=== PATIENT | female | born 1985 | race Caucasian/White ===

== ENCOUNTER 2017-01-31 19:38 | Inpatient (IN) ==
[2017-01-31 20:10] LABS: Bilirubin,Urine Small (Negative); Blood,Urine Negative (Negative); Clarity,Urine Cloudy (Clear); Color,Urine Red (Yellow); Glucose,Urine (UA) Normal (Normal); Ketones,Urine 15 mg/dL (Negative); Leukocyte Esterase,Urine Small (Negative); Nitrite,Urine Positive (Negative); PH,Urine 8.5 pH Units (5.0-8.0); Protein,Urine 100 mg/dL (Neg-Trace); Specific Gravity,Urine 1.023 (1.010-1.025); Urobilinogen,Urine Normal (Normal)
[2017-01-31] MEDS ORDERED: 0.9 % Sodium Chloride 1,000 ML IVC ONE ×2 (20:11→21:49)
[2017-01-31] MEDS ORDERED: Ondansetron 4 MG/2 ML VIAL IVP ONE (20:11)
[2017-01-31 20:12] LABS: Bacteria,Urine None Seen per hpf (None-Few); Hyaline Casts,Urine None Seen per lpf (None-Few); RBC,Urine 0-3 per hpf (0-3); Squamous Epithelial Cell,Urine Many per lpf (None-Few); WBC,Urine 0-3 per hpf (0-3)
[2017-01-31 20:22] LABS: Mucus,Urine Few (Few); Yeast,Urine Moderate per hpf (None Seen)
--- NOTE | 2017-01-31 20:33 | Emergency Department Note ---
Disposition Clinical Impression: Pancreatitis, Urinary tract infection Disposition: Admitted As Inpatient Condition: Fair General Adult HPI - General Chief complaint: ED Abdominal Pain Stated complaint: abd pain Time Seen by Provider: 01/31/17 19:46 Source: patient Limitations: no limitations Nursing Notes Reviewed: Yes Vital Signs Reviewed: Yes - History of Present Illness Pain Scale: 7 - Related Data Home Medications Medication Instructions Recorded Confirmed Amoxicillin [Amoxil] 500 mg PO TID 01/31/17 01/31/17 Buprenorphine HCl/Naloxone HCl 1 each SL BID 01/31/17 01/31/17 [Buprenorphin-Naloxon 8-2 mg Sl] MetroNIDAZOLE [Metronidazole] 500 mg PO TID 01/31/17 01/31/17 Ondansetron HCl 4 mg PO Q6H PRN 01/31/17 01/31/17 Allergies Allergy/AdvReac Type Severity Reaction Status Date / Time No Known Allergies Allergy Verified 01/31/17 22:12 Past Medical History - Past Medical History Medical history: Reports: no medical history, hepatitis, seizures Psychiatric history: Reports: anxiety, depression 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 - Social History Smoking Status: Current every day smoker Smokeless Tobacco Status: No Alcohol use: Reports: occasionally Drug use: Reports: none Physical Exam - General Limitations: no limitations General appearance: alert, in no apparent distress Course Vital Signs Temperature 98.1 F 01/31/17 19:40 Pulse Rate 90 01/31/17 19:40 Respiratory Rate 18 01/31/17 19:40 Blood Pressure 137/83 01/31/17 19:40 O2 Sat by Pulse Oximetry 100 01/31/17 19:40 Temperature 98.1 F 01/31/17 19:40 Pulse Rate 68 01/31/17 22:11 Respiratory Rate 16 01/31/17 22:11 Blood Pressure 122/80 01/31/17 22:11 O2 Sat by Pulse Oximetry 99 01/31/17 22:11 Oxygen Delivery Oxygen Delivery Room Air Medical Decision Making - Medical Records Medical records reviewed: Yes I reviewed the patient's medical records. - Lab Data Lab results reviewed: Yes I reviewed the patient's lab results. Result diagrams: 01/31/17 20:46 01/31/17 20:46 Lab Results 01/31/17 01/31/17 01/31/17 Range/Units 20:02 20:02 20:14 WBC (4.3-11.1) K/mcL RBC (3.82-4.97) M/mcL Hgb (11.5-15.4) g/dL Hct (35.3-44.9) % MCV (83.0-100.0) fL MCH (28.0-33.3) pg MCHC (31.6-35.5) g/dL RDW (11.5-14.5) % Plt Count (140-400) K/mcL MPV (9.4-12.4) fL Immature Gran % (0-4) % Seg Neutrophils % % Lymphocytes % % Monocytes % % Eosinophils % % Basophils % % Neutrophils # (1.6-8.9) K/mcL Lymphocytes # (0.6-4.6) K/mcL Monocytes # (0.0-1.3) K/mcL Eosinophils # (0.0-0.6) K/mcL Basophils # (0.0-0.2) K/mcL Immature Plt Fraction (1.1-6.1) % Sodium (136-145) mEq/L Potassium (3.5-4.5) mEq/L Chloride (98-109) mEq/L Carbon Dioxide (19-29) mEq/L BUN (7-20) mg/dL Creatinine (0.57-1.11) mg/dL Est GFR ( Amer) (> 60) Est GFR (Non-Af Amer) (> 60) BUN/Creatinine Ratio (6-26) Glucose (70-99) mg/dL Calculated Osmolality (280-300) Calcium (8.6-10.8) mg/dL Total Bilirubin (0.2-1.2) mg/dL Direct Bilirubin (0.0-0.5) mg/dL Indirect Bilirubin (0.0-1.2) mg/dL AST (5-34) Units/L ALT (0-55) Units/L Alkaline Phosphatase (38-126) Units/L Creatine Kinase (29-168) Units/L Troponin I (0-0.03) ng/mL Serum Total Protein (6.0-8.3) g/dL Albumin (3.5-5.0) g/dL Globulin (2.4-3.5) g/dL Albumin/Globulin Ratio (1.1-2.2) Lipase (8-78) Units/L Urine Color Red A (Yellow) Urine Clarity Cloudy A (Clear) Urine pH 8.5 H (5.0-8.0) pH Units Ur Specific [place] 1.023 (1.010-1.025) Urine Protein 100 H (Neg-Trace) mg/dL Urine Glucose (UA) Normal (Normal) mg/dL Urine Ketones 15 H (Negative) mg/dL Urine Blood Negative (Negative) Urine Nitrite Positive A (Negative) Urine Bilirubin Small H (Negative) Urine Urobilinogen Normal (Normal) mg/dL Ur Leukocyte Esterase Small H (Negative) Urine Microscopic RBC 0-3 (0-3) per hpf Urine Microscopic WBC 0-3 (0-3) per hpf Ur Squamous Epith Cells Many H (None-Few) per lpf Urine Bacteria None Seen (None-Few) per hpf Hyaline Casts None Seen (None-Few) per lpf Urine Mucus Few (Few) Urine Yeast Moderate H (None Seen) per hpf Ur Culture Indicated? YES A (NO) Urine Test Negative (Negative) Urine Cocaine Screen Negative (Cutoff= 300) ng/mL U Marijuana (THC) Screen Positive H (Cutoff = 50) ng/mL 01/31/17 01/31/17 01/31/17 Range/Units 20:46 20:46 20:46 WBC 6.3 (4.3-11.1) K/mcL RBC 3.98 (3.82-4.97) M/mcL Hgb 13.0 (11.5-15.4) g/dL Hct 39.0 (35.3-44.9) % MCV 98.0 (83.0-100.0) fL MCH 32.7 (28.0-33.3) pg MCHC 33.3 (31.6-35.5) g/dL RDW 14.0 (11.5-14.5) % Plt Count 265 (140-400) K/mcL MPV 9.3 L (9.4-12.4) fL Immature Gran % 0.3 (0-4) % Seg Neutrophils % 67.3 % Lymphocytes % 17.8 % Monocytes % 9.5 % Eosinophils % 4.6 % Basophils % 0.5 % Neutrophils # 4.3 (1.6-8.9) K/mcL Lymphocytes # 1.1 (0.6-4.6) K/mcL Monocytes # 0.6 (0.0-1.3) K/mcL Eosinophils # 0.3 (0.0-0.6) K/mcL Basophils # 0.0 (0.0-0.2) K/mcL Immature Plt Fraction 4.6 (1.1-6.1) % Sodium 138 (136-145) mEq/L Potassium 3.4 L (3.5-4.5) mEq/L Chloride 102 (98-109) mEq/L Carbon Dioxide 25 (19-29) mEq/L BUN 7 (7-20) mg/dL Creatinine 0.62 (0.57-1.11) mg/dL Est GFR ( Amer) > 60 (> 60) Est GFR (Non-Af Amer) > 60 (> 60) BUN/Creatinine Ratio 11 (6-26) Glucose 90 (70-99) mg/dL Calculated Osmolality 284 (280-300) Calcium 8.7 (8.6-10.8) mg/dL Total Bilirubin 0.9 (0.2-1.2) mg/dL Direct Bilirubin 0.5 (0.0-0.5) mg/dL Indirect Bilirubin 0.4 (0.0-1.2) mg/dL AST 65 H (5-34) Units/L ALT 36 (0-55) Units/L Alkaline Phosphatase 80 (38-126) Units/L Creatine Kinase (29-168) Units/L Troponin I 0.00 (0-0.03) ng/mL Serum Total Protein 6.5 (6.0-8.3) g/dL Albumin 3.5 (3.5-5.0) g/dL Globulin 3.0 (2.4-3.5) g/dL Albumin/Globulin Ratio 1.2 (1.1-2.2) Lipase 1483 H (8-78) Units/L Urine Color (Yellow) Urine Clarity (Clear) Urine pH (5.0-8.0) pH Units Ur Specific [place] (1.010-1.025) Urine Protein (Neg-Trace) mg/dL Urine Glucose (UA) (Normal) mg/dL Urine Ketones (Negative) mg/dL Urine Blood (Negative) Urine Nitrite (Negative) Urine Bilirubin (Negative) Urine Urobilinogen (Normal) mg/dL Ur Leukocyte Esterase (Negative) Urine Microscopic RBC (0-3) per hpf Urine Microscopic WBC (0-3) per hpf Ur Squamous Epith Cells (None-Few) per lpf Urine Bacteria (None-Few) per hpf Hyaline Casts (None-Few) per lpf Urine Mucus (Few) Urine Yeast (None Seen) per hpf Ur Culture Indicated? (NO) Urine Test (Negative) Urine Cocaine Screen (Cutoff= 300) ng/mL U Marijuana (THC) Screen (Cutoff = 50) ng/mL 01/31/17 Range/Units 20:46 WBC (4.3-11.1) K/mcL RBC (3.82-4.97) M/mcL Hgb (11.5-15.4) g/dL Hct (35.3-44.9) % MCV (83.0-100.0) fL MCH (28.0-33.3) pg MCHC (31.6-35.5) g/dL RDW (11.5-14.5) % Plt Count (140-400) K/mcL MPV (9.4-12.4) fL Immature Gran % (0-4) % Seg Neutrophils % % Lymphocytes % % Monocytes % % Eosinophils % % Basophils % % Neutrophils # (1.6-8.9) K/mcL Lymphocytes # (0.6-4.6) K/mcL Monocytes # (0.0-1.3) K/mcL Eosinophils # (0.0-0.6) K/mcL Basophils # (0.0-0.2) K/mcL Immature Plt Fraction (1.1-6.1) % Sodium (136-145) mEq/L Potassium (3.5-4.5) mEq/L Chloride (98-109) mEq/L Carbon Dioxide (19-29) mEq/L BUN (7-20) mg/dL Creatinine (0.57-1.11) mg/dL Est GFR ( Amer) (> 60) Est GFR (Non-Af Amer) (> 60) BUN/Creatinine Ratio (6-26) Glucose (70-99) mg/dL Calculated Osmolality (280-300) Calcium (8.6-10.8) mg/dL Total Bilirubin (0.2-1.2) mg/dL Direct Bilirubin (0.0-0.5) mg/dL Indirect Bilirubin (0.0-1.2) mg/dL AST (5-34) Units/L ALT (0-55) Units/L Alkaline Phosphatase (38-126) Units/L Creatine Kinase 103 (29-168) Units/L Troponin I (0-0.03) ng/mL Serum Total Protein (6.0-8.3) g/dL Albumin (3.5-5.0) g/dL Globulin (2.4-3.5) g/dL Albumin/Globulin Ratio (1.1-2.2) Lipase (8-78) Units/L Urine Color (Yellow) Urine Clarity (Clear) Urine pH (5.0-8.0) pH Units Ur Specific [place] (1.010-1.025) Urine Protein (Neg-Trace) mg/dL Urine Glucose (UA) (Normal) mg/dL Urine Ketones (Negative) mg/dL Urine Blood (Negative) Urine Nitrite (Negative) Urine Bilirubin (Negative) Urine Urobilinogen (Normal) mg/dL Ur Leukocyte Esterase (Negative) Urine Microscopic RBC (0-3) per hpf Urine Microscopic WBC (0-3) per hpf Ur Squamous Epith Cells (None-Few) per lpf Urine Bacteria (None-Few) per hpf Hyaline Casts (None-Few) per lpf Urine Mucus (Few) Urine Yeast (None Seen) per hpf Ur Culture Indicated? (NO) Urine Test (Negative) Urine Cocaine Screen (Cutoff= 300) ng/mL U Marijuana (THC) Screen (Cutoff = 50) ng/mL Attestation Statement - Attestation Attestation: I personally interviewed and examined this patient and my medical decision- making was reviewed with the ED Resident Physician, Dr. Solis. I agree with the documented findings, disposition and treatment plan as described except to the extent set forth below. Patient is a 31-year-old white female who presents to the emergency department today complaining of a 2 day history of gradually worsening epigastric abdominal pain. Patient rates her pain about an 8 out 10 in severity radiating around both sides towards her back. Patient states she has been feeling nauseated with this but has had no vomiting. Patient denies any urinary symptoms or flank pain, no bowel changes, no abnormal vaginal bleeding or discharge. Patient denies any fevers or chills or generalized body aches. Patient states she was seen by her doctor about 3 days ago for toothache and also reported to him that she was having a foul odor following sexual intercourse with her although no vaginal discharge. Patient was prescribed amoxicillin and Flagyl both of which she is currently taking. Patient also drinks alcohol daily but denies any history of pancreatitis. Patient with generalized abdominal tenderness to palpation without peritoneal signs, good bowel sounds, no flank tenderness elicited on examination. Remainder of examination is within normal limits. Vital signs are stable. We are obtaining labs and urinalysis at this time and will perform serial abdominal exams. Patient with urinary tract infection and acute pancreatitis with a lipase of around 1500. CT scan negative for pseudocysts. Patient given IV fluids here pain control and will be admitted for further evaluation and treatment. IV antibiotics were initiated for her UTI. Patient remained hemodynamically stable , pancreatitis was likely due to patient's EtOH use.
--- NOTE | 2017-01-31 20:39 | Emergency Department Note ---
Disposition Clinical Impression: Pancreatitis Qualifiers: Chronicity: acute Pancreatitis type: alcohol induced Acute pancreatitis complication: unspecified Qualified Code(s): K85.20 - Alcohol induced acute pancreatitis without necrosis or infection Urinary tract infection Qualifiers: Urinary tract infection type: acute cystitis Hematuria presence: without hematuria Qualified Code(s): N30.00 - Acute cystitis without hematuria Disposition: Admitted As Inpatient Condition: Fair Referrals: NO,PCP [Non-Partnered Physician] - Forms: ED Satisfaction Letter, Work/School Release Time of Disposition: 22:42 Abdominal Pain HPI - General Chief Complaint: ED Abdominal Pain Stated Complaint: abd pain Time Seen by Provider: 01/31/17 19:46 Source: patient Mode of arrival: ambulatory Limitations: no limitations Nursing Notes Reviewed: Yes Vital Signs Reviewed: Yes - History of Present Illness HPI Narrative: P patient presents emergency room with complaint of abdominal pain. Symptom onset several days ago. She describes lower abdominal discomfort radiating in her back and now has diffuse abdominal pain. She has had intermittent fevers according to her. Denies any chest pain shortness of breath headache or vision change. She has never had symptoms like this in the past. Of note she is on Suboxone and does drink alcohol daily. She is concerned that she might have liver related issues at this time. She does have a history of hepatitis C and possibly hepatitis B. Patient denies any other concerns or issues at this time. She really just wants to be evaluated to make sure that her liver is okay and that nothing else is going on in her abdomen. Pt Subjective Complaint: abdominal pain Onset (ago): day(s) Consistency: constant Location: diffuse Pain Severity: moderate Pain Scale: 7 Quality: cramping, aching Radiation: suprapubic Migration to: no migration Improves with: nothing Worsens with: movement Context: new medications Treatments prior to arrival: none - Related Data Home Medications Medication Instructions Recorded Confirmed Amoxicillin [Amoxil] 500 mg PO TID 01/31/17 01/31/17 Buprenorphine HCl/Naloxone HCl 1 each SL BID 01/31/17 01/31/17 [Buprenorphin-Naloxon 8-2 mg Sl] MetroNIDAZOLE [Metronidazole] 500 mg PO TID 01/31/17 01/31/17 Ondansetron HCl 4 mg PO Q6H PRN 01/31/17 01/31/17 Allergies Allergy/AdvReac Type Severity Reaction Status Date / Time No Known Allergies Allergy Verified 01/31/17 22:12 All systems ED: reviewed and negative except as stated. Constitutional: Denies: fever, chills Cardiovascular: Denies: palpitations, dyspnea on exertion, orthopnea Respiratory: Denies: dyspnea, wheezes Gastrointestinal: Reports: abdominal pain, nausea. Denies: vomiting, diarrhea Genitourinary: Denies: dysuria, frequency Musculoskeletal: Reports: back pain. 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 Absent : tenderness - Respiratory Respiratory exam: Present: normal lung sounds bilaterally. Absent: respiratory distress, wheezes, stridor, accessory muscle use - Cardiovascular Cardiovascular exam: Present: regular rate, normal rhythm, normal heart sounds - Abdominal Exam Abdominal exam: Present: soft, tenderness (Diffuse abdominal tenderness), normal bowel sounds. Absent: Non-Tender, distention, guarding, rebound, rigidity, Travis's sign, Rovsing's sign, tenderness at McBurney's Point - Extremities Exam Extremities exam: Present: normal inspection - Back Exam Back exam: Present: normal inspection, full ROM. Absent: tenderness, CVA tenderness (R), CVA tenderness (L) - Neurological Exam Neurological exam: Present: alert, oriented X3, CN II-XII intact, normal gait - Psychiatric Psychiatric exam: Present: normal affect, normal mood - Skin Skin exam: Present: warm, dry, intact, normal color Course Course Narrative: Patient seen and examined the time of arrival. See history of present illness. 31-year-old female presents emergency room today for evaluation of abdominal pain. Symptoms present for several days. Progression is benign slow over the last couple of days. She describes a suprapubic tenderness radiating around under her lower back. She denies any burning with urination. He was seen in outside facility for all smelling odor to her vaginal area and dental pain. She was started on amoxicillin and Flagyl at that time. She has not had any other acute issues since then. Of note she does have hepatitis C possibly hepatitis B and does drink alcohol daily. She also takes amoxicillin. Patient on presentation here does appear to be in some mild distress. Vital signs reviewed patient is afebrile. Heart rate is normal. Patient is concerning for possible intra-abdominal pathology including urinary tract infection and rhabdo secondary to dark-colored urine. Culture panels urinalysis CK fluids and nausea medication to be given. Disposition will be determined once workup and treatment course are completed. Imaging to be determined once laboratory workup has been resulted. Underlying etiology is unknown at this time. Disposition pending treatment course. - Reevaluation(s) Reevaluation #1: Patient has a grossly infected urine at this time. No acute signs of rhabdomyolysis CK is normal. Troponin is negative. Lipase is 1500. Symptoms and presentation this time are consistent with acute pancreatitis secondary to most likely alcohol abuse in medications. Patient provided with fluids and nausea medication will hear. No pain medication required at this time. Patient will be admitted to the hospital for definitive management. First dose of IV Rocephin given for the urinary tract infection. 2 L of fluids given at this time. We will continue to monitor his admission process is completed. Patient is nothing by mouth at this time to remain this way throughout the hospital course of care. CT imaging ordered this time for further evaluation of the abdomen. Hospitalist to be paged after imaging is resulted Time: 22:03 Reevaluation #2: Patient discussed with the hospitalist Dr machuca and we reviewed in detail the patient's presentation symptoms medical history of medical intervention is performed in the ED. Patient this time will be admitted for what appears to be in alcohol medication induced pancreatitis. She also has a urinary tract infection. First dose of IV antibiotics given down here as well as fluid boluses. Patient is nothing by mouth status established at this time. Alcohol abuse was discussed with the hospitalist and they are aware. No further recommendations from the hospitalists at this time. Patient is stable and in good medical condition the time of admission. We will continue to monitor here in the emergency room and to the admission process is completed Time: 22:40 Vital Signs Temperature 98.1 F 01/31/17 19:40 Pulse Rate 90 01/31/17 19:40 Respiratory Rate 18 01/31/17 19:40 Blood Pressure 137/83 05/05/17 19:40 O2 Sat by Pulse Oximetry 100 01/31/17 19:40 Temperature 98.1 F 01/31/17 19:40 Pulse Rate 90 01/31/17 19:40 Respiratory Rate 18 01/31/17 19:40 Blood Pressure 137/83 01/31/17 19:40 O2 Sat by Pulse Oximetry 100 01/31/17 19:40 Oxygen Delivery Oxygen Delivery Room Air Abdominal Pain - MDM Narrative Medical decision making narrative: Abdominal pain, pancreatitis, urinary tract infection - Medical Records Medical records reviewed: Yes I reviewed the patient's medical records. - Lab Data Lab results reviewed: Yes I reviewed the patient's lab results. Lab Results 01/31/17 01/31/17 Range/Units 20:02 20:02 Urine Color Red A (Yellow) Urine Clarity Cloudy A (Clear) Urine pH 8.5 H (5.0-8.0) pH Units Ur Specific [place] 1.023 (1.010-1.025) Urine Protein 100 H (Neg-Trace) mg/dL Urine Glucose (UA) Normal (Normal) mg/dL Urine Ketones 15 H (Negative) mg/dL Urine Blood Negative (Negative) Urine Nitrite Positive A (Negative) Urine Bilirubin Small H (Negative) Urine Urobilinogen Normal (Normal) mg/dL Ur Leukocyte Esterase Small H (Negative) Urine Microscopic RBC 0-3 (0-3) per hpf Urine Microscopic WBC 0-3 (0-3) per hpf Ur Squamous Epith Cells Many H (None-Few) per lpf Urine Bacteria None Seen (None-Few) per hpf Hyaline Casts None Seen (None-Few) per lpf Urine Mucus Few (Few) Urine Yeast Moderate H (None Seen) per hpf Ur Culture Indicated? YES A (NO) Urine Test Negative (Negative) - Radiology Data Radiology results reviewed: Yes I reviewed the patient's radiology results.
[2017-01-31 20:55] LABS: Basophils % 0.5 %; Eosinophils # 0.3 K/mcL (0.0-0.6); Eosinophils % 4.6 %; Immature Granulocytes % 0.3 % (0-4); Immature Platelets 4.6 % (1.1-6.1); Lymphocytes # 1.1 K/mcL (0.6-4.6); Lymphocytes % 17.8 %; Mean Corpuscular HGB Conc 33.3 g/dL (31.6-35.5); Mean Corpuscular Hemoglobin 32.7 pg (28.0-33.3); Mean Platelet Volume 9.3 fL (9.4-12.4); Monocytes # 0.6 K/mcL (0.0-1.3); Monocytes % 9.5 %; Neutrophils # 4.3 K/mcL (1.6-8.9); Platelet Count 265 K/mcL (140-400); Red Blood Count 3.98 M/mcL (3.82-4.97); Segmented Neutrophils % 67.3 %
[2017-01-31 21:11] LABS: Alanine Aminotransferase 36 Units/L (0-55); Albumin 3.5 g/dL (3.5-5.0); Albumin/Globulin Ratio 1.2 (1.1-2.2); Alkaline Phosphatase 80 Units/L (38-126); Aspartate Amino Transferase 65 Units/L (5-34); BUN/Creatinine Ratio 11 (6-26); Bilirubin,Direct 0.5 mg/dL (0.0-0.5); Bilirubin,Indirect 0.4 mg/dL (0.0-1.2); Bilirubin,Total 0.9 mg/dL (0.2-1.2); Blood Urea Nitrogen 7 mg/dL (7-20); Calcium 8.7 mg/dL (8.6-10.8); Carbon Dioxide 25 mEq/L (19-29); Chloride 102 mEq/L (98-109); Glucose 90 mg/dL (70-99); Osmolality,Calculated 284 (280-300); Potassium 3.4 mEq/L (3.5-4.5); Sodium 138 mEq/L (136-145); Total Protein 6.5 g/dL (6.0-8.3); eGFR For African Americans > 60 (> 60); eGFR For Non-African Americans > 60 (> 60)
[2017-01-31 21:30] LABS: Lipase 1483 Units/L (8-78)
[2017-01-31 22:26] LABS: Cannabinoid Screen,Urine Positive ng/mL (Cutoff = 50); Cocaine Screen,Urine Negative ng/mL (Cutoff= 300)
[2017-01-31] MEDS ORDERED: *HR* Morphine 2 MG/ML SYRINGE IVP ONE (22:41)
[2017-01-31 23:08] LABS: Amphetamine Screen,Urine Negative ng/mL (Cutoff=1000); Barbiturate Screen,Urine Negative ng/mL (Cutoff=200); Benzodiazepines Screen,Urine Negative ng/mL (Cutoff=200); Opiate Screen,Urine Negative ng/mL (Cutoff=300); Phencyclidine Screen,Urine Negative ng/mL (Cutoff=25)
[2017-02-01] MEDS ORDERED: Naloxone 0.4 MG/ML INJ IVP PRN (01:29)
[2017-02-01] MEDS ORDERED: *HR* LORazepam 2 MG/ML VIAL IVP PRN ×3 (01:34)
[2017-02-01] MEDS ORDERED: *HR* OxyCODONE Immed Rel 5 MG TABLET PO PRN (01:39)
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
[2017-02-01] MEDS ORDERED: Pantoprazole 40 MG VIAL IVP SCH (01:45)
[2017-02-01] MEDS: *HR* Morphine 2 MG/ML SYRINGE IVP PRN ×2 (02:32→14:30)
[2017-02-01] MEDS: 0.9 % Sodium Chloride 1,000 ML IVC SCH ×2 (02:32→12:18)
[2017-02-01] MEDS ORDERED: Nicotine 14 MG PATCH.TD24 TD SCH (03:38)
[2017-02-01 05:32] LABS: INR 1.1; Prothrombin Time 12.4 Seconds (9.4-12.1)
[2017-02-01 05:51] LABS: Alanine Aminotransferase 27 Units/L (0-55); Albumin 2.8 g/dL (3.5-5.0); Albumin/Globulin Ratio 1.1 (1.1-2.2); Alkaline Phosphatase 65 Units/L (38-126); Aspartate Amino Transferase 47 Units/L (5-34); BUN/Creatinine Ratio 9 (6-26); Bilirubin,Total 0.7 mg/dL (0.2-1.2); Calcium 7.8 mg/dL (8.6-10.8); Carbon Dioxide 23 mEq/L (19-29); Chloride 107 mEq/L (98-109); Chol/HDL Ratio 2.7 (0-4.9); Cholesterol 151 mg/dL (< 200); Globulin 2.5 g/dL (2.4-3.5); Glucose 83 mg/dL (70-99); HDL Cholesterol 55 mg/dL (40-59); LDL Cholesterol,Calculated 87 mg/dL (0-99); Lipase 735 Units/L (8-78); Magnesium 1.5 mg/dL (1.6-2.6); Osmolality,Calculated 282 (280-300); Potassium 3.3 mEq/L (3.5-4.5); Sodium 138 mEq/L (136-145); Total Protein 5.3 g/dL (6.0-8.3); Triglycerides 44 mg/dL (< 150); eGFR For African Americans > 60 (> 60); eGFR For Non-African Americans > 60 (> 60)
[2017-02-01 05:52] LABS: Blood Urea Nitrogen 5 mg/dL (7-20)
[2017-02-01] MEDS ORDERED: *HR* Enoxaparin 40 MG/0.4 ML SYRINGE SQ SCH (06:00)
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
[2017-02-01] MEDS ORDERED: Thiamine (B-1) 100 MG TABLET PO SCH (09:00)
[2017-02-01] MEDS ORDERED: Lactobacillus 1 EACH CAP.SPRINK PO SCH (09:00)
[2017-02-01] MEDS ORDERED: metroNIDAZOLE 500 MG TABLET PO SCH (09:00)
[2017-02-01] MEDS ORDERED: Vitamin B Complex/Vit C/Vit E 1 EACH TABLET PO SCH (09:00)
[2017-02-01] MEDS: Amoxicillin 500 MG CAPSULE PO SCH ×2 (09:00→14:31)
[2017-02-01] MEDS ORDERED: Folic Acid 1 MG TABLET PO SCH (09:00)
[2017-02-01] MEDS ORDERED: Water for inj. (sterile) 10 ML IV ONE (12:12)
[2017-02-01 14:07] VITALS: BP 122/79
--- NOTE | 2017-02-01 16:19 | Discharge Summary ---
<Matt Wilcox - Last Filed: 02/01/17 16:36> Date of Encounter: 02/01/17 Time of Encounter: 16:15 - Discharge Diagnosis (1) Acute pancreatitis Priority: Primary Status: Acute Qualifiers: Pancreatitis type: alcohol induced Acute pancreatitis complication: unspecified Qualified Code(s): K85.20 - Alcohol induced acute pancreatitis without necrosis or infection (2) Urinary tract infection Priority: Primary Status: Acute Qualifiers: Urinary tract infection type: acute cystitis Hematuria presence: without hematuria Qualified Code(s): N30.00 - Acute cystitis without hematuria (3) Alcohol abuse Priority: Primary Status: Chronic (4) Substance abuse Priority: Primary Status: Chronic - Discharge Medications Prescriptions: Levofloxacin [Levaquin] 750 mg PO DAILY #5 tablet Home Medications: Amoxicillin [Amoxil] 500 mg PO TID 01/31/17 [History] Buprenorphine HCl/Naloxone HCl [Buprenorphin-Naloxon 8-2 mg Sl] 1 each SL BID [History] MetroNIDAZOLE [Metronidazole] 500 mg PO TID 01/31/17 [History] Ondansetron HCl 4 mg PO Q6H PRN 01/31/17 [History] Levofloxacin [Levaquin] 750 mg PO DAILY #5 tablet 02/01/17 [Rx] Allergies/Adverse Reactions: Allergies No Known Allergies Allergy (Verified 01/31/17 22:12) Procedures/tests Complete & Pending: Procedures Performed prior 72 hours Category Date Time Status US gall bladder [US] Routine Exams 02/01/17 03:58 Completed Date of admission: 02/01/17 01:34 Primary care physician: PCP NO Consults: 02/01/17 03:42 Consult to Sales Enablement Specialist [CONS] Routine Reason for SW Consult: Substance abuse Discharging clinician: Matt Wilcox Anticipated date of discharge: 02/01/17 - Patient Status Disposition: Left Against Medical Advice Condition: Fair Functional capacity at discharge: independent ambulation - Discharge Instructions Follow Up With: DENA,PCP [Primary Care Provider] - Additional Instructions: I highly recommended the patient to seek medical advice and be reexamined. I highly recommended against the patient leaving the hospital AGAINST MEDICAL ADVICE. Ms. Jimenez was informed that her medical condition of pancreatitis can get worse and may be fatal if not treated appropriately. She is also under treated for urinary tract infection that could progress and make her very ill leading to . The patient was alert and oriented 3 answering questions appropriately throughout our entire discussion. She stated she had to go picker box operator her children all 5 of them from her [id number]'s house because she feared further safety if nobody was there to watch them. She declined social science teacher involvements or any other assistance. She repeated understanding that we highly advised her to continue treatment and that if she does leave AGAINST MEDICAL ADVICE she is at risk for dying. She understood that she is welcome back at our emergency department for treatment and/or should seek treatment at any medical facility for her medical conditions. Interval History: Around 1600 on 02/01/2017 I was requested to come speak with Ms. Jimenez, who was wishing to leave the hospital to go get her children. Upon discussion she stated that she had to go get her 5 children from her [id number]'s house as her [id number] had to go to work and would be unable to watch them. She said she does not have family was supportive and does not have friends that she can trust to watch her children. The patient was alert and oriented 3 answering questions appropriately throughout our entire discussion. She declined social science teacher involvements or any other assistance. She repeated understanding that we highly advised her to continue treatment and that if she does leave AGAINST MEDICAL ADVICE she is at risk for dying. She understood that she is welcome back at our emergency department for treatment and/or should seek treatment at any medical facility for her medical conditions. Ms. Jimenez was informed that her medical condition of pancreatitis can get worse and may be fatal if not treated appropriately. She is also under treated for urinary tract infection that could progress and make her very ill leading to . - I highly recommended the patient to seek medical advice and be reexamined. - I highly recommended against the patient leaving the hospital AGAINST MEDICAL ADVICE. - Ms. Jimenez signed paperwork stating she understood that she is leaving the hospital AGAINST MEDICAL ADVICE. Before leaving she asked where she could find medical records so she could obtain paperwork for this hospital stay showing the medication she received, since she is on Suboxone for her substance abuse and wants to prove that she was provided pain medications for her current pancreatitis during his hospital stay. She stated that she was concerned about her medical condition but had to picker box operator her children and would likely return to the emergency department for further treatment. - I provided her a prescription for Levaquin 750 mg by mouth once a day for 5 days for completion of urinary tract infection treatment. - I also highly advised her to establish a primary care provider for continued treatment and therapy of her medical conditions. Hospital course: Ms. Jimenez is a 31 year old female - Time Spent with Patient Total time spent providing and/or coordinating discharge services: - Constitutional Vitals: Temp Pulse Resp BP Pulse Ox 98.2 F 76 18 122/79 97 02/01/17 14:05 02/01/17 14:05 02/01/17 14:05 02/01/17 14:05 02/01/17 14:05 General appearance: Present: cooperative, mild distress, A&O X 3, pleasant, answers questions appropriately - Head Head exam: Present: atraumatic, normocephalic - Eye Eye exam: Present: PERRL, conjuntiva pink, sclera anicteric Pupils: Present: PERRL - ENT ENT exam: Present: mucous membranes moist - Neck Neck exam general surgery: Present: supple, trachea midline. Absent: lymphadenopathy - Respiratory Respiratory exam: Present: CTAB. Absent: accessory muscle use, rales, rhonchi, wheezes - Cardiovascular Cardiovascular exam: Present: RRR, +S1, +S2. Absent: diastolic murmur, gallop, rubs, systolic murmur - GI/Abdominal GI/Abdominal exam: Present: guarding, normal bowel sounds, tenderness. Absent: distended - Extremities Exam Extremities exam: Present: warm, radial pulses palpable and symetrical. Absent : calf tenderness, cyanotic, pedal edema - Neurological Exam Neurological exam: Present: alert, oriented X3, no focal deficits, strengths equal and symetr throughout. Absent: pronater drift, facial droop, speech deficit - Psychiatric Psychiatric exam: Present: anxious <DucuWil - Last Filed: 02/01/17 17:52> Date of Encounter: 02/01/17 Procedures/tests Complete & Pending: Procedures Performed prior 72 hours Category Date Time Status US gall bladder [US] Routine Exams 02/01/17 03:58 Completed Date of admission: 02/01/17 01:34 Primary care physician: PCP NO Consults: 02/01/17 03:42 Consult to Sales Enablement Specialist [CONS] Routine Reason for SW Consult: Substance abuse Hospital course: Ms. Barbara is a 31 year old female - Time Spent with Patient Total time spent providing and/or coordinating discharge services: - Constitutional Vitals: Temp Pulse Resp BP Pulse Ox 98.2 F 76 18 122/79 97 02/01/17 14:05 02/01/17 14:05 02/01/17 14:05 02/01/17 14:05 02/01/17 14:05 - Attending Attestation I examined this patient and my medical decision-making was reviewed with the Resident Physician, Dr Wilcox. I agree with the documented findings, disposition and treatment plan as described except to the extent set forth below. I have personally discussed with the patient [id number] to risks of her leaving the hospital AGAINST MEDICAL ADVICE including worsening pain, infection and . She states that she has to leave the hospital to take care of her 5 children. I advised her to follow a clear liquid diet. I advised her to come back to the hospital if the pain is worse. He provided a prescription for Levaquin for her UTI.
[2017-02-01] MEDS ORDERED: CLINDAMYCIN VAG VG SCH (21:00)
== END 2017-02-01 16:16 | disposition left against medical advice (07) | DRG 282 ==
LOC: 3ANU 19:38 → EMEROO 19:38 → 3ANU 23:13
PROVIDERS: ADMIT Internal Medicine; ATTEND Internal Medicine

== ENCOUNTER 2017-10-17 08:26 | Inpatient (IN) ==
[2017-10-17] MEDS ORDERED: 0.9 % Sodium Chloride 1,000 ML IVC ONE (08:41)
[2017-10-17] MEDS ORDERED: Ondansetron 4 MG/2 ML VIAL IVP ONE (08:41)
[2017-10-17] MEDS ORDERED: *HR* Morphine 2 MG/ML SYRINGE IVP ONE (08:41)
--- NOTE | 2017-10-17 08:48 | Emergency Department Note ---
Disposition Clinical Impression: Alcoholism Abdominal pain Qualifiers: Abdominal location: epigastric Qualified Code(s): R10.13 - Epigastric pain Cholelithiases Qualifiers: Cholelithiasis location: gallbladder Cholecystitis presence: without cholecystitis Biliary obstruction: without biliary obstruction Qualified Code(s) : K80.20 - Calculus of gallbladder without cholecystitis without obstruction Disposition: Admitted As Inpatient Condition: Fair Abdominal Pain HPI - General Chief Complaint: ED Abdominal Pain Stated Complaint: Abd pain Time Seen by Provider: 10/17/17 08:32 Source: patient Mode of arrival: private vehicle Limitations: no limitations Nursing Notes Reviewed: Yes Vital Signs Reviewed: Yes - History of Present Illness Pt Subjective Complaint: abdominal pain Onset (ago): hour(s) Consistency: constant Location: epigastric Pain Severity: severe Pain Scale: 10 Quality: fullness, sharp Radiation: none Migration to: no migration Improves with: nothing Worsens with: nothing Context: history of similar episodes (January 2017 - Dx Pancreatitis) Associated symptoms: Reports: nausea, vomiting. Denies: diarrhea, fever, chills , constipation, dysuria, hematemesis, hematochezia, melena, hematuria, anorexia , syncope Treatments prior to arrival: none (last oral intake - 5AM drank some milk) - Related Data Home Medications Medication Instructions Recorded Confirmed Buprenorphine HCl/Naloxone HCl 1 each SL BID 01/31/17 10/17/17 [Buprenorphin-Naloxon 8-2 mg Sl] Allergies Allergy/AdvReac Type Severity Reaction Status Date / Time No Known Allergies Allergy Verified 06/21/17 12:18 All systems ED: reviewed and negative except as stated. Review of Systems: As Per HPI Constitutional: Denies: fever, chills, weakness Cardiovascular: Denies: chest pain, palpitations, dyspnea on exertion Respiratory: Denies: dyspnea Gastrointestinal: Reports: as per HPI, abdominal pain, nausea, vomiting. 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 Absent: scleral icterus, conjunctival injection, periorbital swelling - ENT ENT exam: mucous membranes dry - Neck Neck exam: Present: normal inspection, full ROM, trachea midline. Absent: meningismus - Chest Chest inspection: Present: normal inspection - Respiratory Respiratory exam: Present: normal lung sounds bilaterally. Absent: respiratory distress - Cardiovascular Cardiovascular exam: Present: normal rhythm, tachycardia, normal heart sounds. Absent: systolic murmur, diastolic murmur - Abdominal Exam Abdominal exam: Present: soft, tenderness, distention, guarding, normal bowel sounds. Absent: rebound, rigidity, ascites, mass, pulsatile mass - Extremities Exam Extremities exam: Present: full ROM - Neurological Exam Neurological exam: Present: alert, oriented X3, CN II-XII intact, normal gait - Psychiatric Psychiatric exam: Present: normal affect, normal mood - Skin Skin exam: Present: warm, dry, intact, normal color Course Course Narrative: 32-year-old female with history of alcoholism and previous IV drug abuse, currently on Suboxone, presents from home with significant other for evaluation of abdominal pain. It is primarily in the epigastrium and upper quadrants. She has had nausea and vomiting but no fever or chills. She denies any bowel, urinary or vaginal complaints. She appears uncomfortable but nontoxic. She has significant tenderness in epigastrium and right upper quadrant. Labs, meds , fluids and imaging study ordered. Pain and nausea better. CT concerning for cholecystitis. Labs show elevated LFTs , normal lipase, neg , normal u/a, normal CBC and BMP. RUQ u/s shows stone and thickening of the GB wall. Rafa HIDA. Surgery consulted. Dr. Unger rafa's admit to medicine. Case was discussed with Dr. Solis. He has examined the patient, reviewed the labs and imaging study findings and agrees with the assessment and plan. - Consultations Consultation #1: Case discussed with Dr. Unger. He has reviewed the patient's labs, CT and U/ S and results and recommends that the patient be admitted to the hospitalist. He will consult. Time: 11:22 Vital Signs Temperature 97.4 F L 10/17/17 08:27 Pulse Rate 112 10/17/17 08:27 Respiratory Rate 18 10/17/17 08:27 Blood Pressure 119/72 10/17/17 08:27 O2 Sat by Pulse Oximetry 99 10/17/17 08:27 Temperature 97.4 F L 10/17/17 08:27 Pulse Rate 56 10/17/17 10:17 Respiratory Rate 12 10/17/17 08:48 Blood Pressure 123/86 10/17/17 10:17 O2 Sat by Pulse Oximetry 99 10/17/17 10:17 Oxygen Delivery Oxygen Delivery Room Air Abdominal Pain - Medical Records Medical records reviewed: Yes I reviewed the patient's medical records. - Lab Data Lab results reviewed: Yes I reviewed the patient's lab results. Lab results narrative: Laboratory Last Values WBC 4.5 K/mcL (4.3-11.1) 10/17/17 08:55 RBC 4.55 M/mcL (3.82-4.97) 10/17/17 08:55 Hgb 14.8 g/dL (11.5-15.4) 10/17/17 08:55 Hct 43.9 % (35.3-44.9) 10/17/17 08:55 MCV 96.5 fL (83.0-100.0) 10/17/17 08:55 MCH 32.5 pg (28.0-33.3) 10/17/17 08:55 MCHC 33.7 g/dL (31.6-35.5) 10/17/17 08:55 RDW 16.5 % (11.5-14.5) H 10/17/17 08:55 Plt Count 348 K/mcL (140-400) 10/17/17 08:55 MPV 8.7 fL (9.4-12.4) L 10/17/17 08:55 Immature Gran % 0.2 % (0-4) 10/17/17 08:55 Seg Neutrophils % 54.1 % 10/17/17 08:55 Lymphocytes % 31.8 % 10/17/17 08:55 Monocytes % 10.4 % 10/17/17 08:55 Eosinophils % 2.6 % 10/17/17 08:55 Basophils % 0.9 % 10/17/17 08:55 Neutrophils # 2.5 K/mcL (1.6-8.9) 10/17/17 08:55 Lymphocytes # 1.4 K/mcL (0.6-4.6) 10/17/17 08:55 Monocytes # 0.5 K/mcL (0.0-1.3) 10/17/17 08:55 Eosinophils # 0.1 K/mcL (0.0-0.6) 10/17/17 08:55 Basophils # 0.0 K/mcL (0.0-0.2) 10/17/17 08:55 PT 10.6 Seconds (9.4-12.1) 10/17/17 08:55 INR 1.0 10/17/17 08:55 APTT 29.2 Seconds (26.0-36.0) 10/17/17 08:55 Sodium 140 mEq/L (136-145) 10/17/17 08:55 Potassium 3.8 mEq/L (3.5-5.1) 10/17/17 08:55 Chloride 104 mEq/L (98-107) 10/17/17 08:55 Carbon Dioxide 27 mEq/L (23-29) 10/17/17 08:55 BUN 5 mg/dL (6-20) L 10/17/17 08:55 Creatinine 0.43 mg/dL (0.60-1.20) L 10/17/17 08:55 Est GFR ( Amer) > 60 (> 60) 10/17/17 08:55 Est GFR (Non-Af Amer) > 60 (> 60) 10/17/17 08:55 BUN/Creatinine Ratio 12 (6-26) 10/17/17 08:55 Glucose 117 mg/dL (70-105) H 10/17/17 08:55 Calculated Osmolality 288 (280-300) 10/17/17 08:55 Lactic Acid 1.7 mmol/L (0.5-2.2) 10/17/17 08:55 Calcium 9.1 mg/dL (8.6-10.3) 10/17/17 08:55 Total Bilirubin 0.4 mg/dL (0.3-1.0) 10/17/17 08:55 AST 188 Units/L (13-39) H 10/17/17 08:55 ALT 90 Units/L (7-52) H 10/17/17 08:55 Alkaline Phosphatase 180 Units/L (34-104) H 10/17/17 08:55 Serum Total Protein 7.4 g/dL (6.4-8.9) 10/17/17 08:55 Albumin 3.8 g/dL (3.5-5.7) 10/17/17 08:55 Globulin 3.6 g/dL (2.4-3.5) H 10/17/17 08:55 Albumin/Globulin Ratio 1.1 (1.1-2.2) 10/17/17 08:55 Lipase 35 Units/L (11-82) 10/17/17 08:55 Urine Color Yellow (Yellow) 10/17/17 08:45 Urine Clarity Cloudy (Clear) A 10/17/17 08:45 Urine pH 6.0 pH Units (5.0-8.0) 10/17/17 08:45 Ur Specific [place] 1.017 (1.010-1.025) 10/17/17 08:45 Urine Protein Negative mg/dL (Neg-Trace) 10/17/17 08:45 Urine Glucose (UA) Normal mg/dL (Normal) 10/17/17 08:45 Urine Ketones Negative mg/dL (Negative) 10/17/17 08:45 Urine Blood Negative (Negative) 10/17/17 08:45 Urine Nitrite Negative (Negative) 10/17/17 08:45 Urine Bilirubin Negative (Negative) 10/17/17 08:45 Urine Urobilinogen Normal mg/dL (Normal) 10/17/17 08:45 Ur Leukocyte Esterase Negative (Negative) 10/17/17 08:45 Urine Microscopic RBC 3-5 per hpf (0-3) H 10/17/17 08:45 Urine Microscopic WBC 3-5 per hpf (0-3) H 10/17/17 08:45 Ur Squamous Epith Cells Many per lpf (None-Few) H 10/17/17 08:45 Urine Bacteria None Seen per hpf (None-Few) 10/17/17 08:45 Hyaline Casts Few per lpf (None-Few) 10/17/17 08:45 Ur Culture Indicated? NO (NO) 10/17/17 08:45 Urine Test Negative (Negative) 10/17/17 08:45 Result diagrams: 10/17/17 08:55 10/17/17 08:55 Lab Results 10/17/17 10/17/17 10/17/17 Range/Units 08:45 08:45 08:55 WBC 4.5 (4.3-11.1) K/mcL RBC 4.55 (3.82-4.97) M/mcL Hgb 14.8 (11.5-15.4) g/dL Hct 43.9 (35.3-44.9) % MCV 96.5 (83.0-100.0) fL MCH 32.5 (28.0-33.3) pg MCHC 33.7 (31.6-35.5) g/dL RDW 16.5 H (11.5-14.5) % Plt Count 348 (140-400) K/mcL MPV 8.7 L (9.4-12.4) fL Immature Gran % 0.2 (0-4) % Seg Neutrophils % 54.1 % Lymphocytes % 31.8 % Monocytes % 10.4 % Eosinophils % 2.6 % Basophils % 0.9 % Neutrophils # 2.5 (1.6-8.9) K/mcL Lymphocytes # 1.4 (0.6-4.6) K/mcL Monocytes # 0.5 (0.0-1.3) K/mcL Eosinophils # 0.1 (0.0-0.6) K/mcL Basophils # 0.0 (0.0-0.2) K/mcL PT (9.4-12.1) Seconds INR APTT (26.0-36.0) Seconds Sodium (136-145) mEq/L Potassium (3.5-5.1) mEq/L Chloride (98-107) mEq/L Carbon Dioxide (23-29) mEq/L BUN (6-20) mg/dL Creatinine (0.60-1.20) mg/dL Est GFR ( Amer) (> 60) Est GFR (Non-Af Amer) (> 60) BUN/Creatinine Ratio (6-26) Glucose (70-105) mg/dL Calculated Osmolality (280-300) Lactic Acid (0.5-2.2) mmol/L Calcium (8.6-10.3) mg/dL Total Bilirubin (0.3-1.0) mg/dL AST (13-39) Units/L ALT (7-52) Units/L Alkaline Phosphatase (34-104) Units/L Serum Total Protein (6.4-8.9) g/dL Albumin (3.5-5.7) g/dL Globulin (2.4-3.5) g/dL Albumin/Globulin Ratio (1.1-2.2) Lipase (11-82) Units/L Urine Color Yellow (Yellow) Urine Clarity Cloudy A (Clear) Urine pH 6.0 (5.0-8.0) pH Units Ur Specific [place] 1.017 (1.010-1.025) Urine Protein Negative (Neg-Trace) mg/dL Urine Glucose (UA) Normal (Normal) mg/dL Urine Ketones Negative (Negative) mg/dL Urine Blood Negative (Negative) Urine Nitrite Negative (Negative) Urine Bilirubin Negative (Negative) Urine Urobilinogen Normal (Normal) mg/dL Ur Leukocyte Esterase Negative (Negative) Urine Microscopic RBC 3-5 H (0-3) per hpf Urine Microscopic WBC 3-5 H (0-3) per hpf Ur Squamous Epith Cells Many H (None-Few) per lpf Urine Bacteria None Seen (None-Few) per hpf Hyaline Casts Few (None-Few) per lpf Ur Culture Indicated? NO (NO) Urine Test Negative (Negative) 10/17/17 10/17/17 10/17/17 Range/Units 08:55 08:55 08:55 WBC (4.3-11.1) K/mcL RBC (3.82-4.97) M/mcL Hgb (11.5-15.4) g/dL Hct (35.3-44.9) % MCV (83.0-100.0) fL MCH (28.0-33.3) pg MCHC (31.6-35.5) g/dL RDW (11.5-14.5) % Plt Count (140-400) K/mcL MPV (9.4-12.4) fL Immature Gran % (0-4) % Seg Neutrophils % % Lymphocytes % % Monocytes % % Eosinophils % % Basophils % % Neutrophils # (1.6-8.9) K/mcL Lymphocytes # (0.6-4.6) K/mcL Monocytes # (0.0-1.3) K/mcL Eosinophils # (0.0-0.6) K/mcL Basophils # (0.0-0.2) K/mcL PT 10.6 (9.4-12.1) Seconds INR 1.0 APTT 29.2 (26.0-36.0) Seconds Sodium 140 (136-145) mEq/L Potassium 3.8 (3.5-5.1) mEq/L Chloride 104 (98-107) mEq/L Carbon Dioxide 27 (23-29) mEq/L BUN 5 L (6-20) mg/dL Creatinine 0.43 L (0.60-1.20) mg/dL Est GFR ( Amer) > 60 (> 60) Est GFR (Non-Af Amer) > 60 (> 60) BUN/Creatinine Ratio 12 (6-26) Glucose 117 H (70-105) mg/dL Calculated Osmolality 288 (280-300) Lactic Acid 1.7 (0.5-2.2) mmol/L Calcium 9.1 (8.6-10.3) mg/dL Total Bilirubin 0.4 (0.3-1.0) mg/dL AST 188 H (13-39) Units/L ALT 90 H (7-52) Units/L Alkaline Phosphatase 180 H (34-104) Units/L Serum Total Protein 7.4 (6.4-8.9) g/dL Albumin 3.8 (3.5-5.7) g/dL Globulin 3.6 H (2.4-3.5) g/dL Albumin/Globulin Ratio 1.1 (1.1-2.2) Lipase 35 (11-82) Units/L Urine Color (Yellow) Urine Clarity (Clear) Urine pH (5.0-8.0) pH Units Ur Specific [place] (1.010-1.025) Urine Protein (Neg-Trace) mg/dL Urine Glucose (UA) (Normal) mg/dL Urine Ketones (Negative) mg/dL Urine Blood (Negative) Urine Nitrite (Negative) Urine Bilirubin (Negative) Urine Urobilinogen (Normal) mg/dL Ur Leukocyte Esterase (Negative) Urine Microscopic RBC (0-3) per hpf Urine Microscopic WBC (0-3) per hpf Ur Squamous Epith Cells (None-Few) per lpf Urine Bacteria (None-Few) per hpf Hyaline Casts (None-Few) per lpf Ur Culture Indicated? (NO) Urine Test (Negative) - Radiology Data Radiology results reviewed: Yes I reviewed the patient's radiology results. Abdomen/Pelvis CT 10/17/17 09:08 IMPRESSION: Findings suggestive of possible cholecystitis. No CT evidence of cholelithiasis. Consider further evaluation with an ultrasound examination. D/ / Earl Oropeza MD / Earl Oorpeza MD Interpreting Provider: Earl Oropeza MD Gallbladder Ultrasound 10/17/17 10:26 IMPRESSION: 1. Cholelithiasis with mild gallbladder wall thickening. However sonographic Travis's sign is negative. If there is still concern for acute cholecystitis, a HIDA scan can be performed for further evaluation. 2. Mild hepatomegaly with steatosis. D/ / Ld Flaherty MD / Ld Flaherty MD Interpreting Provider: Ld Flaherty MD Attestation Statement - Attestation Attestation: I, Cornel Solis DO have provided [id number] time during the care of this patient. Detailed review the presentation, symptoms, medical history were discussed and reviewed with the mid-level provider Ria Knutson PA-C/BARREL PAINTER. Medical intervention labs and imaging studies were reviewed in detail. See full documentation of physical exam and course of care in the mid-level provider 's note. I agree with the determined course of care, medical intervention and disposition put forth by the mid-level provider. See below documentation for changes or alterations in documentation. 32-year-old female presents to emergency room with abdominal pain and inflammation in the midepigastrium and right upper quadrant. Vital signs show tachycardia. Patient long-standing history of alcohol abuse and one time pancreatitis. Patient denies any trauma or injury. She did drink alcohol yesterday. Denies being intoxicated today. On physical exam lungs are clear heart is regular abdomen is soft but does have tenderness in the epigastrium and right upper quadrant. Laboratory workup does show mild elevated white count as well as transaminitis and elevated alkaline phosphatase. T bili is normal at 0.4. Lipase is 35. No acute signs of obstructive pathology. Concern is noted for pancreatitis versus gallbladder disease. CT imaging was ordered by the mid-level provider showing what is concerning for possible cholecystitis. Patient will have symptomatically controlled by this time the ultrasound ordered. Otherwise rest of her laboratory workup and imaging modalities are negative. She will be treated symptomatically and then expect admission process to be completed. Appropriate consultations will be established as needed. See detailed documentation of physical exam, medical intervention, medical decision making, disposition and the mid-level provider's note. [id number] pt found to have possible cholecystitis. dicusssed with Dr. Unger, admit to hospitalist and the consult. Pt given zosyn here and admission completed. no critical care.
[2017-10-17 08:56] LABS: Bilirubin,Urine Negative (Negative); Blood,Urine Negative (Negative); Clarity,Urine Cloudy (Clear); Color,Urine Yellow (Yellow); Glucose,Urine (UA) Normal (Normal); Ketones,Urine Negative (Negative); Leukocyte Esterase,Urine Negative (Negative); Nitrite,Urine Negative (Negative); Protein,Urine Negative (Neg-Trace); Specific Gravity,Urine 1.017 (1.010-1.025); Urobilinogen,Urine Normal (Normal)
[2017-10-17 08:58] LABS: Bacteria,Urine None Seen per hpf (None-Few); Hyaline Casts,Urine Few per lpf (None-Few); Squamous Epithelial Cell,Urine Many per lpf (None-Few)
[2017-10-17 09:08] LABS: Basophils % 0.9 %; Eosinophils # 0.1 K/mcL (0.0-0.6); Eosinophils % 2.6 %; Hematocrit 43.9 % (35.3-44.9); Hemoglobin 14.8 g/dL (11.5-15.4); Immature Granulocytes % 0.2 % (0-4); Lymphocytes # 1.4 K/mcL (0.6-4.6); Lymphocytes % 31.8 %; Mean Corpuscular HGB Conc 33.7 g/dL (31.6-35.5); Mean Corpuscular Hemoglobin 32.5 pg (28.0-33.3); Mean Corpuscular Volume 96.5 fL (83.0-100.0); Mean Platelet Volume 8.7 fL (9.4-12.4); Monocytes # 0.5 K/mcL (0.0-1.3); Monocytes % 10.4 %; Neutrophils # 2.5 K/mcL (1.6-8.9); Platelet Count 348 K/mcL (140-400); Red Blood Count 4.55 M/mcL (3.82-4.97); Red Cell Distribution Width 16.5 % (11.5-14.5); Segmented Neutrophils % 54.1 %
[2017-10-17 09:15] LABS: Prothrombin Time 10.6 Seconds (9.4-12.1)
[2017-10-17 09:18] LABS: Activated Partial Thrombo Time 29.2 Seconds (26.0-36.0)
[2017-10-17 09:24] LABS: Alanine Aminotransferase 90 Units/L (7-52); Albumin 3.8 g/dL (3.5-5.7); Albumin/Globulin Ratio 1.1 (1.1-2.2); Alkaline Phosphatase 180 Units/L (34-104); Aspartate Amino Transferase 188 Units/L (13-39); BUN/Creatinine Ratio 12 (6-26); Bilirubin,Total 0.4 mg/dL (0.3-1.0); Blood Urea Nitrogen 5 mg/dL (6-20); Calcium 9.1 mg/dL (8.6-10.3); Carbon Dioxide 27 mEq/L (23-29); Chloride 104 mEq/L (98-107); Globulin 3.6 g/dL (2.4-3.5); Glucose 117 mg/dL (70-105); Lipase 35 Units/L (11-82); Osmolality,Calculated 288 (280-300); Potassium 3.8 mEq/L (3.5-5.1); Sodium 140 mEq/L (136-145); Total Protein 7.4 g/dL (6.4-8.9); eGFR For African Americans > 60 (> 60); eGFR For Non-African Americans > 60 (> 60)
[2017-10-17] MEDS ORDERED: *HR* FentaNYL (PF) 100 MCG/2 ML VIAL IVP ONE (12:06)
[2017-10-17] MEDS ORDERED: *HR* Morphine 2 MG/ML SYRINGE IVP PRN (12:20)
[2017-10-17] MEDS ORDERED: Ondansetron 4 MG/2 ML VIAL IVP PRN (12:20)
[2017-10-17] MEDS ORDERED: Naloxone 0.4 MG/ML INJ IVP PRN (12:20)
--- NOTE | 2017-10-17 12:32 | General Surgery Consult Note ---
<Saniya Denny - Last Filed: 10/17/17 15:54> Date of Encounter: 10/17/17 Time of Encounter: 12:32 Assessment and Plan (1) Right upper quadrant pain Current Visit: Yes Status: Acute Etiology unknown at this point. Suggest cardiovascular workout to rule out possible underlying cardiovascular etiology given her complaints of chest discomfort and atypical symptoms associated with cholecystitis or cholelithiasis. Plan: recommend NPO recommend cardiovascular workout as above serial abdominal exam repeating and labs consideration for further workup i.e. Hida scan versus EGD pending above Protonix 40 mg BID IV (2) Cholelithiases Current Visit: Yes Status: Acute See above Qualifiers: Cholelithiasis location: gallbladder Cholecystitis presence: without cholecystitis Biliary obstruction: without biliary obstruction Qualified Code(s): K80.20 - Calculus of gallbladder without cholecystitis without obstruction (3) Alcohol abuse Current Visit: Yes Status: Chronic Management per primary team, noted CIWA scales (4) Polysubstance (including opioids) dependence with physiol dependence Current Visit: Yes Status: Chronic Per record review, patient has a history of IV heroin use. Patient also admits to history of IV methamphetamine use. She states her last use was approximately 3 years ago for either one. She reports use of Suboxone therapy at this time. And orders report was reviewed and is appropriate with this history. Recommend cardiovascular workout to rule out cardiac etiology Management per primary team History of Present Illness Consult date: 10/17/17 (Dr. Meño Unger) Reason for consult: abdominal pain Requesting physician: Elvin Dao History of present illness: Manuela is a 32-year-old female with past medical history of hepatitis B , hepatitis C, IV drug use (meth, states last use was 2 years ago), Suboxone use , smoking history half to one pack per day for 17 years, and heavy alcohol use ( at least 6 beers daily) last alcohol drink was approximately 24 hours ago and a surgical history of a . She presented on 10/17/2017 with complaints of sharp abdominal discomfort in the mid-abdomen that radiated around to her back. She also reported right-sided chest pain. She denied episodes of vomiting but stated that she did have some nausea. Her hospital course thus far has included a CT of the abdomen and pelvis with IV and no oral contrast which revealed no bowel obstruction, no evidence of colitis, diverticulitis, or appendicitis, the gallbladder wall was mildly thickened and there was no evidence of cholelithiasis or [employer] ( is. There was no evidence of pancreatitis. Right upper quadrant ultrasound noted cholelithiasis with mild gallbladder wall thickening, negative sonographic Travis sign and mild hepatomegaly with steatosis. Her WBC is normal. Her AST is 188, ALT 90, and Alkphos 180, and her lipase is normal. Currently, she denies changes in bowel habits, black, bloody, tarry, or any changes in color of stool, she denies bloody emesis, shortness of breath, fevers , chills, or generalized weakness. She does endorse some brief intermittent chest pain with deep breath while at home that continues at this time. She denies any cardiovascular history or testing. She states she has seen a [facility] for her hepatitis but she has not sought any further treatments. She endorses abdominal pain as described above and feelings of anxiety at this time. Past Med Surg Social Fam HX - Past Medical History Source: patient, old records reviewed Medical history: hepatitis, liver disease (Fatty liver), other (Alcohol abuse; substance abuse (previous IV drug user)) Psychiatric history: anxiety, depression - Past Surgical History Surgical History: - Social History Smoking Status: Current every day smoker Packs per day: 0.5 x17 years Smokeless Tobacco Status: No Alcohol use: heavy (At least 6 beers per day) Drug use: IV Drug Use (Meth), other (on suboxone) Occupational status: unemployed Current living situation: Home - Independent Activity Level: Independent ambulation Recent Out of Country Travel Within the Last 8 Weeks: No Exposure or Possible Exposure to Illness During Travel: No - Family History Father Adopted: No Living Status: Still Living Hx Family Cardiac Disorders: Yes (htn) Medications and Allergies Buprenorphine HCl/Naloxone HCl [Buprenorphin-Naloxon 8-2 mg Sl] 1 each SL BID [History] 3 Allergy/AdvReac Type Severity Reaction Status Date / Time No Known Allergies Allergy Verified 06/21/17 12:18 Review of Systems All systems PM: reviewed and no additional remarkable complaints except as stated All systems PM: A 10-system review of systems was performed and is negative for pertinent findings except as documented above in the HPI. General Surgery Exam Initial Vital Signs Temp Pulse Resp BP Pulse Ox 97.4 F L 112 18 119/72 99 10/17/17 08:27 10/17/17 08:27 10/17/17 08:27 10/17/17 08:27 10/17/17 08:27 - General physical appearance moderate pain, other (Appears anxious, fine motor tremors noted with extension) - Eyes normal ocular movement - ENT normal mucosa, atraumatic, normocephalic - Neck trachea midline, no venous distension - Respiratory normal expansion, clear to auscultation - Cardiovascular Cardiovascular exam: Present: RRR - Abdomen Abdomen general surgery: Present: bowel sounds present, soft, tender Abdominal Tenderness: Present: RUQ, LUQ Hernia: Present: none - Integumentary Integumentary general surgery: Present: warm and dry, no abnormal pigmentation - Neurologic Present: normal coordination, normal sensation, other (Anxious) - Musculoskeletal Present: normal gait, normal posture - Psychiatric Psychiatric general surgery: Present: A&Ox3, appropriate, oriented to person, oriented to place, oriented to time, speech is normal, memory intact, other ( Anxious) Exam Initial Vital Signs Temp Pulse Resp BP Pulse Ox 97.4 F L 112 18 119/72 99 10/17/17 08:27 10/17/17 08:27 10/17/17 08:27 10/17/17 08:27 10/17/17 08:27 Results - Labs 10/17/17 08:55 10/17/17 08:55 Abnormal lab results RDW 16.5 % (11.5-14.5) H 10/17/17 08:55 MPV 8.7 fL (9.4-12.4) L 10/17/17 08:55 BUN 5 mg/dL (6-20) L 10/17/17 08:55 Creatinine 0.43 mg/dL (0.60-1.20) L 10/17/17 08:55 Glucose 117 mg/dL (70-105) H 10/17/17 08:55 AST 188 Units/L (13-39) H 10/17/17 08:55 ALT 90 Units/L (7-52) H 10/17/17 08:55 Alkaline Phosphatase 180 Units/L (34-104) H 10/17/17 08:55 Globulin 3.6 g/dL (2.4-3.5) H 10/17/17 08:55 Urine Clarity Cloudy (Clear) A 10/17/17 08:45 Urine Microscopic RBC 3-5 per hpf (0-3) H 10/17/17 08:45 Urine Microscopic WBC 3-5 per hpf (0-3) H 10/17/17 08:45 Ur Squamous Epith Cells Many per lpf (None-Few) H 10/17/17 08:45 All other labs normal. - Imaging CT scan - abdomen: report reviewed CT scan - pelvis: report reviewed US - abdomen: report reviewed Additional studies: Abdomen/Pelvis CT 10/17/17 09:08 IMPRESSION: Findings suggestive of possible cholecystitis. No CT evidence of cholelithiasis. Consider further evaluation with an ultrasound examination. D/ / Earl Oropeza MD / Earl Oropeza MD Interpreting Provider: Earl Oropeza MD Gallbladder Ultrasound 10/17/17 10:26 IMPRESSION: 1. Cholelithiasis with mild gallbladder wall thickening. However sonographic Travis's sign is negative. If there is still concern for acute cholecystitis, a HIDA scan can be performed for further evaluation. 2. Mild hepatomegaly with steatosis. D/ / Ld Flaherty MD / Ld Flaherty MD Interpreting Provider: Ld Flaherty MD Consult Discharge Plan - Plan Referrals: NONE,PCP [Primary Care Provider] - <Meño Unger - Last Filed: 10/17/17 21:46> Date of Encounter: 10/17/17 Review of Systems All systems PM: A 10-system review of systems was performed and is negative for pertinent findings except as documented above in the HPI. General Surgery Exam Initial Vital Signs Temp Pulse Resp BP Pulse Ox 97.4 F L 112 18 119/72 99 10/17/17 08:27 10/17/17 08:27 10/17/17 08:27 10/17/17 08:27 10/17/17 08:27 Exam Initial Vital Signs Temp Pulse Resp BP Pulse Ox 97.4 F L 112 18 119/72 99 10/17/17 08:27 10/17/17 08:27 10/17/17 08:27 10/17/17 08:27 10/17/17 08:27 Results - Labs 10/17/17 08:55 10/17/17 08:55 Abnormal lab results RDW 16.5 % (11.5-14.5) H 10/17/17 08:55 MPV 8.7 fL (9.4-12.4) L 10/17/17 08:55 BUN 5 mg/dL (6-20) L 10/17/17 08:55 Creatinine 0.43 mg/dL (0.60-1.20) L 10/17/17 08:55 Glucose 117 mg/dL (70-105) H 10/17/17 08:55 AST 188 Units/L (13-39) H 10/17/17 08:55 ALT 90 Units/L (7-52) H 10/17/17 08:55 Alkaline Phosphatase 180 Units/L (34-104) H 10/17/17 08:55 Globulin 3.6 g/dL (2.4-3.5) H 10/17/17 08:55 Urine Clarity Cloudy (Clear) A 10/17/17 08:45 Urine Microscopic RBC 3-5 per hpf (0-3) H 10/17/17 08:45 Urine Microscopic WBC 3-5 per hpf (0-3) H 10/17/17 08:45 Ur Squamous Epith Cells Many per lpf (None-Few) H 10/17/17 08:45 All other labs normal. - Attending Attestation I have personally performed a face to face evaluation on this patient. I have reviewed and agree with the care plan. History and Exam by me shows: I reviewed the above assessment and evaluation with the [employer] and agree with the above plan. Noted abdominal pain in the epigastrum with radiation to the RUQ and chest. Patient admits to nausea. Sharp and continuous. CT was concerning for cholecystitis however the US of the gallbladder only demonstrated gallstones , mild GB thickening, and no pericholecystic fluid. Pain to palpation in the RUQ and epigastrum. To consider EGD to rule out gastric component. If negative then will consider possible laparoscopic cholecystectomy.
--- NOTE | 2017-10-17 12:35 | Internal Med History&Physical ---
Date of Encounter: 10/17/17 Time of Encounter: 12:29 Assessment and Plan (1) Biliary colic Current visit: Yes Status: Acute 1 patient has sudden onset of epigastric pain radiating to right upper quadrant - suspect cholecystits lab work shows elevated LFTs normal lipase and CT concerning for cholecystitis right upper quadrant shows ultrasound demonstrated thickening of gallbladder wall. No leukocytosis and no fever. We will obtain HIDA scan [address] Unger to see patient 3 initiated on Zosyn per surgery 4 monitor intake and output 5 morphine yesterday for pain 6 zofran nausea 7 NPO * IVF (2) Alcohol abuse Current visit: No Status: Chronic 1 she has history of alcohol abuse and drinks approximately 6 beers daily last drink was at midnight last night-patient does have history of seizure-we will place on CIWA precautions 2Seizure precautions 3 fall precautions 4 start banana bag (3) Substance abuse Current visit: No Status: Chronic 1 history of heroin abuse last use 3 years ago presently on Suboxone-history of seizures during withdrawal-we will monitor 2 seizure precautions (4) DVT prophylaxis Current visit: Yes Status: Chronic 1 Lovenox subcutaneous (5) Nicotine dependence Current visit: No Status: Chronic encourage patient to stop smoking- Nicotine patch Qualifiers: Nicotine product type: cigarettes Substance use status: unspecified nicotine-induced disorder Qualified Code(s): F17.219 - Nicotine dependence, cigarettes, with unspecified nicotine-induced disorders Internal Medicine - H&P: HPI Chief complaint: abd pain Admitted From: Emergency Dept Plans for Post Hospital Care: Home History of present illness: Ms. Jimenez is a 32 year old female past medical history off alcohol abuse previous IV drug user currently on Suboxone hepatitis C pancreatitis current smoker. According to the patient she was awakened at approximate 5 AM experiencing epigastric pain radiating to right upper quadrant she did experience some nausea and vomiting but denies any fevers chills or diarrhea. She denies any hematemesis hematochezia or melena. There are no aggravating or relieving factors. Patient is an alcoholic she drinks the equivalent of 6 pack of beer daily. Her last drink was at midnight last night she last ate around midnight a bowl cereal and she had some milk this a.m. She did have a similar episode of abdominal pain last year that time she was diagnosed with pancreatitis. Lab work was obtained which did show elevated liver enzymes no leukocytosis rest of lab work was unremarkable. CT concerning for cholecystitis , right upper quadrant ultrasound shows stone and thickening of the gallbladder. ER physician did speak with Dr. Unger and he will see patient in consult. Patient was given IV fluids and initiated on antibiotics-Zosyn. She has been A for further workup evaluation. Presently patient appears to be in some mild pain complains of right upper quadrant pain radiating to her back. She is hemodynamically stable at this time and I did review this case with Dr. Dao who does agree with plan Past Med Surg Social Fam HX - Past Medical History Medical history: other Psychiatric history: anxiety, depression - Social History Smoking Status: Current every day smoker Smokeless Tobacco Status: No Alcohol use: occasionally Drug use: other (on suboxone) - Family History Father Adopted: No Living Status: Still Living Hx Family Cardiac Disorders: Yes (htn) Internal Medicine - H&P: Meds Buprenorphine HCl/Naloxone HCl [Buprenorphin-Naloxon 8-2 mg Sl] 1 each SL BID [History] 3 Allergy/AdvReac Type Severity Reaction Status Date / Time No Known Allergies Allergy Verified 06/21/17 12:18 All Systems PM: A 10-system review of systems was performed and is negative for pertinent findings except as documented above in the HPI. - Constitutional Constitutional: no chills, no fever(s), no night sweats - EENT Eyes: no change in vision, no discharge, no pain, no photophobia Nose, mouth and throat: no dysphagia, no nasal discharge, no neck pain, no sore throat - Cardiovascular Cardiovascular ROS IM: no chest pain, no diaphoresis, no dyspnea, no lightheadedness, no palpitations, no syncope - Respiratory Respiratory: no cough, no dyspnea, no wheezing, no excessive phlegm production - Gastrointestinal Gastrointestinal: abdominal pain, nausea, vomiting - Genitourinary Genitourinary: no change in urinary stream, no dysuria, no flank pain, no hematuria - Musculoskeletal Musculoskeletal ROS IM: no numbness, no tingling - Integumentary Integumentary IM: no rash, no unusual bruising - Neurological Neurological ROS: no confusion, no convulsions, no focal weakness, no numbness, no tingling, no tremor(s) - Hematologic/Lymphatic Hematologic/Lymphatic: no easy bruising - Constitutional Vitals: Temp Pulse Resp BP Pulse Ox 97.4 F L 56 12 123/86 99 10/17/17 08:27 10/17/17 10:17 10/17/17 08:48 10/17/17 10:17 10/17/17 10:17 General appearance: Present: A&O X 3 - Head Head exam: Present: atraumatic, normocephalic - Eye Eye exam: Present: PERRL, conjuntiva pink, sclera anicteric Pupils: Present: PERRL - Neck Neck exam general surgery: Present: supple, trachea midline. Absent: lymphadenopathy - Respiratory Respiratory exam: Present: CTAB. Absent: accessory muscle use, rales, rhonchi, wheezes - Cardiovascular Cardiovascular exam: Present: RRR, +S1, +S2. Absent: diastolic murmur, gallop, rubs, systolic murmur - GI/Abdominal GI/Abdominal exam: Present: normal bowel sounds, soft, tenderness, no peritoneal signs. Absent: distended - Extremities Exam Extremities exam: Present: warm, radial pulses palpable and symmetrical. Absent : calf tenderness, cyanotic, pedal edema - Neurological Exam Neurological exam: Present: CN II-XII intact, oriented X3, no focal deficits. Absent: pronater drift, facial droop, speech deficit - Skin Skin exam: Present: dry, intact Internal Med - H&P Results - Labs CBC & Chem 7: 10/17/17 08:55 10/17/17 08:55 - Diagnostic Studies Other Images Additional comments: Abdomen/Pelvis CT 10/17/17 09:08 IMPRESSION: Findings suggestive of possible cholecystitis. No CT evidence of cholelithiasis. Consider further evaluation with an ultrasound examination. D/ / Earl Oropeza MD / Earl Oropeza MD Interpreting Provider: Earl Oropeza MD Gallbladder Ultrasound 10/17/17 10:26 IMPRESSION: 1. Cholelithiasis with mild gallbladder wall thickening. However sonographic Travis's sign is negative. If there is still concern for acute cholecystitis, a HIDA scan can be performed for further evaluation. 2. Mild hepatomegaly with steatosis. D/ / Ld Flaherty MD / Ld Flaherty MD Interpreting Provider: Ld Flaherty MD
[2017-10-17] MEDS ORDERED: *HR* LORazepam 2 MG/ML VIAL IVP PRN ×2 (12:37)
[2017-10-17] MEDS: 0.9 % Sodium Chloride 1,000 ML IVC SCH (14:33)
[2017-10-17] MEDS: Nicotine 14 MG PATCH.TD24 TD SCH (14:33)
[2017-10-17] MEDS: *HR* Morphine 2 MG/ML SYRINGE IVP PRN ×3 (15:36→21:25)
[2017-10-17] MEDS: Piperacillin/Tazobactam 3.375 GM/200 ML BAG IVPB SCH (15:36)
[2017-10-17] MEDS: Pantoprazole 40 MG VIAL IVP SCH (17:20)
[2017-10-17] MEDS: Thiamine (B-1) 100 MG, Folic Acid 1 MG, MVI, adult with vitamin K 10 ML in 0.9 % Sodi... IVPB SCH (21:14)
[2017-10-18] MEDS: *HR* Morphine 2 MG/ML SYRINGE IVP PRN ×6 (01:06→22:17)
[2017-10-18] MEDS: 0.9 % Sodium Chloride 1,000 ML IVC SCH (01:10)
[2017-10-18] MEDS: Piperacillin/Tazobactam 3.375 GM/200 ML BAG IVPB SCH ×3 (01:10→15:57)
[2017-10-18] MEDS: Pantoprazole 40 MG VIAL IVP SCH ×2 (05:14→17:37)
[2017-10-18] MEDS: *HR* Enoxaparin 40 MG/0.4 ML SYRINGE SQ SCH (05:17)
[2017-10-18 06:41] LABS: BUN/Creatinine Ratio 18 (6-26); Blood Urea Nitrogen 7 mg/dL (6-20); Calcium 7.7 mg/dL (8.6-10.3); Carbon Dioxide 19 mEq/L (23-29); Chloride 107 mEq/L (98-107); Glucose 58 mg/dL (70-105); Magnesium 1.5 mg/dL (1.6-2.6); Osmolality,Calculated 278 (280-300); Potassium 3.6 mEq/L (3.5-5.1); Sodium 136 mEq/L (136-145); eGFR For African Americans > 60 (> 60); eGFR For Non-African Americans > 60 (> 60)
[2017-10-18 07:32] LABS: Basophils % 0.6 %; Eosinophils # 0.2 K/mcL (0.0-0.6); Eosinophils % 3.3 %; Hematocrit 39.2 % (35.3-44.9); Immature Granulocytes % 0.2 % (0-4); Lymphocytes # 1.7 K/mcL (0.6-4.6); Lymphocytes % 32.8 %; Mean Corpuscular HGB Conc 33.2 g/dL (31.6-35.5); Mean Corpuscular Hemoglobin 32.8 pg (28.0-33.3); Mean Platelet Volume 9.5 fL (9.4-12.4); Monocytes # 0.5 K/mcL (0.0-1.3); Monocytes % 9.8 %; Neutrophils # 2.8 K/mcL (1.6-8.9); Platelet Count 291 K/mcL (140-400); Red Blood Count 3.96 M/mcL (3.82-4.97); Red Cell Distribution Width 15.8 % (11.5-14.5); Segmented Neutrophils % 53.3 %
[2017-10-18] MEDS: Nicotine 14 MG PATCH.TD24 TD SCH (10:12)
[2017-10-18] MEDS: *HR* LORazepam 2 MG/ML VIAL IVP PRN ×2 (10:28→23:38)
[2017-10-18 11:16] LABS: Alanine Aminotransferase 47 Units/L (7-52); Albumin 2.8 g/dL (3.5-5.7); Alkaline Phosphatase 120 Units/L (34-104); Aspartate Amino Transferase 78 Units/L (13-39); Bilirubin,Direct 0.2 mg/dL (0.0-0.2); Bilirubin,Indirect 0.4 mg/dL (0.0-1.2); Bilirubin,Total 0.6 mg/dL (0.3-1.0); Globulin 2.8 g/dL (2.4-3.5); Total Protein 5.6 g/dL (6.4-8.9)
[2017-10-18] MEDS ORDERED: 0.9 % Sodium Chloride 500 ML IVC ONE (11:52)
[2017-10-18] MEDS ORDERED: 0.9 % Sodium Chloride 500 ML ONE (11:56)
--- NOTE | 2017-10-18 14:42 | General Surgery Progress Note ---
<Breann Beasley - Last Filed: 10/18/17 17:27> Date of Encounter: 10/18/17 Time of Encounter: 14:41 - Assessment and Plan (1) Cholelithiases Current Visit: Yes Status: Acute 32 y F with Hx of polysubstance abuse presenting with RUQ pain. -Afebrile, hemodynamically stable. States pain persists, yet improved -Lab work on admission demonstrated elevated LFTs,normal lipase. CT was concerning for cholecystitis, U/S demonstrated thickening of gallbladder wall. -HIDA scan report reviewed, results concerning for cholecystitis. -Plan for lap aarti tomorrow. Attending Dr. Unger discussed risk and benefits with patient and family. Pt amenable to lap aarti and verbalized understanding -Clear liquid diet -NPO from midnight. Qualifiers: Cholelithiasis location: gallbladder Cholecystitis presence: without cholecystitis Biliary obstruction: without biliary obstruction Qualified Code(s): K80.20 - Calculus of gallbladder without cholecystitis without obstruction (2) Polysubstance (including opioids) dependence with physiol dependence Current Visit: Yes Status: Chronic Past medical history of hepatitis B, hepatitis C, IV drug use (meth, states last use was 2 years ago), Suboxone use, smoking history half to one pack per day for 17 years, and heavy alcohol use (at least 6 beers daily) last alcohol drink was approximately 48 hours ago -Continue CIWA assessments (3) DVT prophylaxis Current Visit: Yes Status: Chronic Continue management. Subjective Patient reports: feels better, still having pain, afebrile Narrative: No acute events overnight. Pt asking if possible that family wheels patients off the floor. Informed patient RN will educate patient on hospital policy. RN aware of request and shared with [facility] policy states patient required to remain on floor at all times Objective Vital Signs - Last 8 Hours Temp Pulse Resp BP Pulse Ox 10/18/17 12:20 109/74 10/18/17 11:20 97.4 F L 75 16 95/64 98 Intake and Output 10/17/17 10/18/17 10/18/17 23:59 07:59 15:59 Intake Total 200 / 200 1200 / 1200 Balance 200 / 200 1200 / 1200 Intake: IV Fluids 200 / 200 1200 / 1200 0.9 % Sodium Chloride 1,000 ML 1000 / 1000 @ 100 mls/hr IVC .Q10H [facility] Rx#: [id number] Zosyn Premix 3.375 GM/200 ML 3. 200 / 200 200 / 200 375 gm In 200 ml @ 50 mls/hr IVPB Q8HR [facility] Rx#:[id number] Other: # Voids 1 Weight 56.835 kg Patient Weight 10/18/17 23:59 Weight 56.835 kg - General physical appearance no distress - Eyes normal ocular movement - Respiratory normal expansion, normal respiratory effort - Abdomen Abdomen: Present: bowel sounds present, soft, tender (mild tenderness on palpation ). Absent: distended - Neurologic normal coordination - Psychiatric oriented to time, oriented to person, oriented to place, speech is normal - Labs 10/18/17 06:13 10/18/17 06:13 Diabetes panel 10/18/17 Range/Units 06:13 Sodium 136 (136-145) mEq/L Potassium 3.6 (3.5-5.1) mEq/L Chloride 107 (98-107) mEq/L Carbon Dioxide 19 L (23-29) mEq/L BUN 7 (6-20) mg/dL Creatinine 0.39 L (0.60-1.20) mg/dL Glucose 58 L (70-105) mg/dL Calcium 7.7 L (8.6-10.3) mg/dL AST 78 H (13-39) Units/L ALT 47 (7-52) Units/L Alkaline Phosphatase 120 H (34-104) Units/L Albumin 2.8 L (3.5-5.7) g/dL Calcium panel 10/18/17 Range/Units 06:13 Calcium 7.7 L (8.6-10.3) mg/dL Albumin 2.8 L (3.5-5.7) g/dL Pituitary panel 10/18/17 Range/Units 06:13 Sodium 136 (136-145) mEq/L Potassium 3.6 (3.5-5.1) mEq/L Chloride 107 (98-107) mEq/L Carbon Dioxide 19 L (23-29) mEq/L BUN 7 (6-20) mg/dL Creatinine 0.39 L (0.60-1.20) mg/dL Glucose 58 L (70-105) mg/dL Calcium 7.7 L (8.6-10.3) mg/dL Adrenal panel 10/18/17 Range/Units 06:13 Sodium 136 (136-145) mEq/L Potassium 3.6 (3.5-5.1) mEq/L Chloride 107 (98-107) mEq/L Carbon Dioxide 19 L (23-29) mEq/L BUN 7 (6-20) mg/dL Creatinine 0.39 L (0.60-1.20) mg/dL Glucose 58 L (70-105) mg/dL Calcium 7.7 L (8.6-10.3) mg/dL Total Bilirubin 0.6 (0.3-1.0) mg/dL AST 78 H (13-39) Units/L ALT 47 (7-52) Units/L Alkaline Phosphatase 120 H (34-104) Units/L Albumin 2.8 L (3.5-5.7) g/dL Consult Discharge Plan - Plan Referrals: NONE,PCP [Primary Care Provider] - <Meño Unger - Last Filed: 10/18/17 18:16> Date of Encounter: 10/18/17 Objective Vital Signs - Last 8 Hours Temp Pulse Resp BP Pulse Ox 10/18/17 17:30 97.7 F 98 18 132/90 95 10/18/17 12:20 109/74 10/18/17 11:20 97.4 F L 75 16 95/64 98 Intake and Output 10/18/17 10/18/17 10/18/17 07:59 15:59 23:59 Intake Total 1200 / 1200 200 / 200 Balance 1200 / 1200 200 / 200 Intake: IV Fluids 1200 / 1200 200 / 200 0.9 % Sodium Chloride 1,000 ML 1000 / 1000 @ 100 mls/hr IVC .Q10H [facility] Rx#: [id number] Zosyn Premix 3.375 GM/200 ML 3. 200 / 200 200 / 200 375 gm In 200 ml @ 50 mls/hr IVPB Q8HR [facility] Rx#:[id number] Other: Weight 56.835 kg Patient Weight 10/18/17 23:59 Weight 56.835 kg - Labs 10/18/17 06:13 10/18/17 06:13 Diabetes panel 10/18/17 Range/Units 06:13 Sodium 136 (136-145) mEq/L Potassium 3.6 (3.5-5.1) mEq/L Chloride 107 (98-107) mEq/L Carbon Dioxide 19 L (23-29) mEq/L BUN 7 (6-20) mg/dL Creatinine 0.39 L (0.60-1.20) mg/dL Glucose 58 L (70-105) mg/dL Calcium 7.7 L (8.6-10.3) mg/dL AST 78 H (13-39) Units/L ALT 47 (7-52) Units/L Alkaline Phosphatase 120 H (34-104) Units/L Albumin 2.8 L (3.5-5.7) g/dL Calcium panel 10/18/17 Range/Units 06:13 Calcium 7.7 L (8.6-10.3) mg/dL Albumin 2.8 L (3.5-5.7) g/dL Pituitary panel 10/18/17 Range/Units 06:13 Sodium 136 (136-145) mEq/L Potassium 3.6 (3.5-5.1) mEq/L Chloride 107 (98-107) mEq/L Carbon Dioxide 19 L (23-29) mEq/L BUN 7 (6-20) mg/dL Creatinine 0.39 L (0.60-1.20) mg/dL Glucose 58 L (70-105) mg/dL Calcium 7.7 L (8.6-10.3) mg/dL Adrenal panel 10/18/17 Range/Units 06:13 Sodium 136 (136-145) mEq/L Potassium 3.6 (3.5-5.1) mEq/L Chloride 107 (98-107) mEq/L Carbon Dioxide 19 L (23-29) mEq/L BUN 7 (6-20) mg/dL Creatinine 0.39 L (0.60-1.20) mg/dL Glucose 58 L (70-105) mg/dL Calcium 7.7 L (8.6-10.3) mg/dL Total Bilirubin 0.6 (0.3-1.0) mg/dL AST 78 H (13-39) Units/L ALT 47 (7-52) Units/L Alkaline Phosphatase 120 H (34-104) Units/L Albumin 2.8 L (3.5-5.7) g/dL - Attending Attestation I examined this patient and my medical decision-making was reviewed with the Resident Physician. I agree with the documented findings, disposition and treatment plan as described except to the extent set forth below. I reviewed the above assessment and evaluation with the wireless internet installer present. Patient had an abnormal HIDA scan study performed this morning and patient does admit to having had some discomfort during the procedure. I do think that she has more of a gallbladder etiology behind her abdominal pain and will plan for a laparoscopic cholecystectomy due to biliary dyskinesia within the next 24 hours.
--- NOTE | 2017-10-18 17:05 | Internal Med Progress Note ---
Date of Encounter: 10/18/17 Time of Encounter: 13:00 - Assessment and plan (1) Cholelithiases Current Visit: Yes Status: Acute Assessment and plan: presented with RUQ pain. Lipase normal, LFTs elevated and trending down. ABD CT concerning for cholecystitis, U/S demonstrated thickening of gallbladder wall. HIDA scan also consistent with cholecystitis. Clear liquid diet for now. NPO at midnight. Plan for coldly 10/19. General surgery following Qualifiers: Cholelithiasis location: gallbladder Cholecystitis presence: without cholecystitis Biliary obstruction: without biliary obstruction Qualified Code(s): K80.20 - Calculus of gallbladder without cholecystitis without obstruction (2) Alcohol abuse Current Visit: Yes Status: Chronic Assessment and plan: daily drinker. Last drink 2 days prior to presentation. Cont to monitor with CIWA (3) DVT prophylaxis Current Visit: Yes Status: Chronic Assessment and plan: Lovenox - Subjective Interval history: Seen and examined at bedside; patient is new to me. Information obtained from chart review and patient report. Still risks right upper quadrant abdominal pain, worse with palpation. Says she is hungry and would like eat if possible. - Constitutional Vitals: Temp Pulse Resp BP Pulse Ox 97.4 F L 75 16 109/74 98 10/18/17 11:20 10/18/17 11:20 10/18/17 11:20 10/18/17 12:20 10/18/17 11:20 General appearance: Present: A&O X 3 - Head Head exam: Present: atraumatic, normocephalic - Eye Eye exam: Present: PERRL, conjuntiva pink, sclera anicteric Pupils: Present: PERRL - Neck Neck exam general surgery: Present: supple, trachea midline. Absent: lymphadenopathy - Respiratory Respiratory exam: Present: CTAB. Absent: accessory muscle use, rales, rhonchi, wheezes - Cardiovascular Cardiovascular exam: Present: RRR, +S1, +S2. Absent: diastolic murmur, gallop, rubs, systolic murmur - GI/Abdominal GI/Abdominal exam: Present: normal bowel sounds, soft, tenderness, no peritoneal signs. Absent: distended - Extremities Exam Extremities exam: Present: warm, radial pulses palpable and symmetrical. Absent : calf tenderness, cyanotic, pedal edema - Neurological Exam Neurological exam: Present: CN II-XII intact, oriented X3, no focal deficits. Absent: pronater drift, facial droop, speech deficit - Skin Skin exam: Present: dry, intact Internal Medicine: Result - Labs CBC & Chem 7: 10/18/17 06:13 10/18/17 06:13 Labs: Short CBC 10/18/17 Range/Units 06:13 WBC 5.2 (4.3-11.1) K/mcL Hgb 13.0 D (11.5-15.4) g/dL Hct 39.2 (35.3-44.9) % Plt Count 291 (140-400) K/mcL Neutrophils # 2.8 (1.6-8.9) K/mcL BMP 10/18/17 06:13 Sodium 136 Potassium 3.6 Chloride 107 Carbon Dioxide 19 L BUN 7 Creatinine 0.39 L Glucose 58 L Calcium 7.7 L Liver Function 10/18/17 Range/Units 06:13 Total Bilirubin 0.6 (0.3-1.0) mg/dL Direct Bilirubin 0.2 (0.0-0.2) mg/dL AST 78 H (13-39) Units/L ALT 47 (7-52) Units/L Alkaline Phosphatase 120 H (34-104) Units/L Albumin 2.8 L (3.5-5.7) g/dL - ABG Interpretation ABG results: PT/INR, D-dimer PT 10.6 Seconds (9.4-12.1) 10/17/17 08:55 - Impressions Impressions Bile Acid Absorption NM 10/18/17 08:00 IMPRESSION: Nonvisualized gallbladder including after administration of IV morphine suggesting cystic duct obstruction/ acute cholecystitis. The findings were sent to the Radiology [facility] at 9:43 am on 10/18/2017to be communicated to a licensed caregiver. D/ / Ranjan Cortez MD / Ranjan Cortez MD Interpreting Provider: Ranjan Cortez MD Consult Discharge Plan - Plan Referrals: NONE,PCP [Primary Care Provider] -
[2017-10-18] MEDS: Thiamine (B-1) 100 MG, Folic Acid 1 MG, MVI, adult with vitamin K 10 ML in 0.9 % Sodi... IVPB SCH (20:15)
[2017-10-19] MEDS: *HR* Morphine 2 MG/ML SYRINGE IVP PRN ×5 (03:39→21:27)
[2017-10-19 03:57] LABS: Albumin 3.4 g/dL (3.5-5.7); Albumin/Globulin Ratio 1.1 (1.1-2.2); Bilirubin,Direct 0.2 mg/dL (0.0-0.2); Bilirubin,Indirect 0.2 mg/dL (0.0-1.2); Bilirubin,Total 0.4 mg/dL (0.3-1.0); Total Protein 6.4 g/dL (6.4-8.9)
[2017-10-19] MEDS ORDERED: Piperacillin/Tazobactam 3.375 GM/200 ML BAG IVPB SCH (04:00)
[2017-10-19] MEDS: *HR* Enoxaparin 40 MG/0.4 ML SYRINGE SQ SCH ×2 (06:27→06:32)
[2017-10-19] MEDS: Pantoprazole 40 MG VIAL IVP SCH (06:28)
[2017-10-19] MEDS: Nicotine 14 MG PATCH.TD24 TD SCH ×2 (08:08→18:40)
[2017-10-19] MEDS ORDERED: Albuterol 2.5 MG/3 ML NEBULIZER ONE (10:14)
[2017-10-19] MEDS ORDERED: Albuterol 2.5 MG/3 ML NEBULIZER IH ONE ×3 (10:18→13:25)
[2017-10-19] MEDS ORDERED: Ringers Solution, Lactated 1,000 ML IVC SCH (10:30)
--- NOTE | 2017-10-19 10:54 | Anesthesia Evaluation PreOp ---
Date of Encounter: 10/19/17 Time of Encounter: 10:52 - Past History Planned Operation: 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 Patient also admits to history of IV methamphetamine use.), other (on suboxone) Medications and Allergies Buprenorphine HCl/Naloxone HCl [Buprenorphin-Naloxon 8-2 mg Sl] 1 each SL BID [History] 3 Allergy/AdvReac Type Severity Reaction Status Date / Time No Known Allergies Allergy Verified 06/21/17 12:18 - Meds/Allergy Pre-op Review Medications Reviewed: Yes Allergies Reviewed: Yes Beta Blockers on Current Med List: No Anesthesia Results - Labs 10/18/17 06:13 10/18/17 06:13 Anesthesia Exam O2 Sat Weight 58.559 kg O2 Sat by Pulse Oximetry 98 O2 Sat by Pulse Oximetry 98 O2 Sat by Pulse Oximetry 97 O2 Sat by Pulse Oximetry 97 O2 Sat by Pulse Oximetry 91 O2 Sat by Pulse Oximetry 95 O2 Sat by Pulse Oximetry 98 Vital Signs Temp Pulse Resp BP Pulse Ox 97.4 F L 112 18 119/72 99 10/17/17 08:27 10/17/17 08:27 10/17/17 08:27 10/17/17 08:27 10/17/17 08:27 Vital Signs/O2 Sat, Most Current Temp Pulse Resp BP Pulse Ox 97.8 F 60 16 121/65 98 10/19/17 08:49 10/19/17 08:49 10/19/17 10:28 10/19/17 10:28 10/19/17 10:28 Pain Scale: 0 Pain Scale Used: Numeric (1 - 10) - HEENT Pupil (Motor): Pupils equal, EOMI Mallampati: II Teeth: Normal Oral Opening: Greater than 3 - [employer] LOC: Oriented [employer] Motor: Normal RUE, Normal LUE, Normal RLE, Normal LLE, Normal Face [employer] Sensory: Normal: RUE, LUE, RLE, LLE, Face - Cardiac Rhythm: Regular Murmur: None JVD: No Carotid Bruit: No - Pulmonary Breath Sounds: bilateral Clear Respiratory Effort: Symmetrical Anesthesia Assess/Plan ASA Score: 3 Modified Fenwick Scale for Level of Consciousness: Cooperative, oriented, and tranquil Anesthetic Plan: General Autologous Blood: Yes Monitoring Plan: Standard Monitors Recovery Plan: PACU
[2017-10-19] MEDS ORDERED: Lidocaine -MPF 2% 2 ML VIAL ONE (11:01)
[2017-10-19] MEDS ORDERED: Ondansetron 4 MG/2 ML VIAL ONE (11:01)
[2017-10-19] MEDS ORDERED: *HR* Midazolam HCl 2 MG/2 ML VIAL ONE (11:01)
[2017-10-19] MEDS ORDERED: *HR* Succinylcholine 200 MG/10 ML VIAL IVP ONE (11:01)
[2017-10-19] MEDS ORDERED: *HR* Propofol 200 MG/20 ML VIAL IVP ONE (11:01)
[2017-10-19] MEDS ORDERED: Dexamethasone 4 MG/ML VIAL ONE (11:01)
[2017-10-19] MEDS ORDERED: *HR* Rocuronium Bromide 50 MG/5 ML VIAL ONE (11:01)
[2017-10-19] MEDS ORDERED: *HR* FentaNYL (PF) 100 MCG/2 ML VIAL ONE (11:02)
[2017-10-19] MEDS ORDERED: *HR* Promethazine 25 MG/ML VIAL IVP PRN (11:43)
[2017-10-19] MEDS ORDERED: Ondansetron 4 MG/2 ML VIAL IVP ONE (11:43)
[2017-10-19] MEDS ORDERED: *HR* Labetalol 20 MG/4 ML SYRINGE IVP PRN (11:43)
--- NOTE | 2017-10-19 11:52 | Operative Note ---
Date of procedure: 10/19/17 Pre-op diagnosis: Biliary dyskinesia Post-op diagnosis: other (Biliary dyskinesia, Acute cholecystitis) Procedure: Laparoscopic cholecystectomy Anesthesia: GETA Surgeon: Meño Unegr Was there an cook's assistant present: No Estimated blood loss (cc): 10 Specimen: gallbladder and contents Condition: stable Disposition: PACU Procedure in Detail: Date of surgery: 10/19/17 After properly identifying the patient, the patient was brought to the operating room and placed in the supine position. After proper IV sedation was achieved followed by general endotracheal intubation, the patient's abdomen was prepped and draped in a normal sterile fashion. A timeout was performed noting the patient's name and type of procedure to be performed. An 11 blade scalpel was used to make a subumbilical incision down to the level of the rectus fascia. Once the rectus fascia was incised the abdomen was entered and a 12 mm port was placed to the incision. A laparoscopic camera was placed through the port which showed no injury to the abdominal organs upon entry. A subxiphoid 12 mm port in the right subcostal margin 5 mm port were then placed under direct camera visualization. The right upper quadrant was examined and the gallbladder was noted to be mildly erythematous and distended with edema, consistent with acute cholecystitis. The gallbladder was decompressed with a laparoscopic needle decompression device removing 60 mL of hydrops fluid. This allowed for grasping of the gallbladder retraction of the gallbladder superiorly. The peritoneal covering overlying the gallbladder and infundibulum were carefully dissected away from the gallbladder with Bovie cauterization and blunt dissection. The cystic duct was identified, clipped with laparoscopic clips, and incised with laparoscopic scissors. The cystic artery was likewise identified, clipped with laparoscopic clips, and incised laparoscopic scissors. Careful dissection was used to dissect the gallbladder away from the gallbladder fossa with Bovie cauterization while Bovie cauterization was used to maintain hemostasis. Once the gallbladder was dissected free it was removed from the abdomen via an Endobag. Reinspection of the right upper quadrant demonstrated maintenance of hemostasis and the right upper quadrant was irrigated with normal saline solution until the effluent was clear. All ports were removed from the abdomen after the abdomen was desufflated. The rectus fascia for the subumbilical incision was reapproximated with a figure of eight 0 Vicryl suture. The subcutaneous tissue was reapproximated with interrupted 3-0 Vicryl sutures. The epidermal and dermal layers for the remaining incisions were closed with 4-0 Monocryl sutures. Needle, sponge, and instrument counts were correct 2 and the incisions were covered with Steri- Strips and Band-Aids. The patient was aroused from IV sedation, extubated in the operating room without complication, and transported to the recovery room in stable condition.
--- NOTE | 2017-10-19 11:55 | Event Note ---
Date of Encounter: 10/19/17 Time of Encounter: 11:54 Laparoscopic cholecystectomy performed without incident. Will advance diet. From surgical standpoint patient is ok for discharge home today. If she is discharged I will make certain she has a follow up to see [facility] in two weeks. Thank you.
[2017-10-19] MEDS: *HR* HYDROmorphone (PF) 1 MG/ML SYRINGE IVP PRN ×2 (12:04→12:20)
[2017-10-19] MEDS ORDERED: Naloxone 0.4 MG/ML INJ IVP PRN (13:25)
[2017-10-19] MEDS ORDERED: *HR* LORazepam 2 MG/ML VIAL IVP PRN ×3 (13:25)
[2017-10-19] MEDS ORDERED: Ondansetron 4 MG/2 ML VIAL IVP PRN (13:25)
--- NOTE | 2017-10-19 16:57 | Internal Med Progress Note ---
Date of Encounter: 10/19/17 Time of Encounter: 15:00 - Assessment and plan (1) Cholelithiases Current Visit: Yes Status: Acute Assessment and plan: presented with RUQ pain. Lipase normal, LFTs elevated and trending down. ABD CT concerning for cholecystitis, U/S demonstrated thickening of gallbladder wall. HIDA scan also consistent with cholecystitis. S/p laparoscopic cholecystectomy. Advance diet as tolerated per general surgery recommendations. Will need to follow-up with General Surgery in 2 weeks. Plan on discharge 10/20 if tolerating PO intake and pain control. Qualifiers: Cholelithiasis location: gallbladder Cholecystitis presence: without cholecystitis Biliary obstruction: without biliary obstruction Qualified Code(s): K80.20 - Calculus of gallbladder without cholecystitis without obstruction (2) Alcohol abuse Current Visit: Yes Status: Chronic Assessment and plan: daily drinker. Last drink 2 days prior to presentation. Cont to monitor with CIWA (3) DVT prophylaxis Current Visit: Yes Status: Chronic Assessment and plan: Lovenox - Subjective Interval history: Seen and examined at bedside; she just returned from PACU. Drowsy but responsive. Complaining of abdominal pain, does not give further characteristics. - Constitutional Vitals: Temp Pulse Resp BP Pulse Ox 98 F 51 16 146/90 100 10/19/17 16:21 10/19/17 16:21 10/19/17 16:21 10/19/17 16:21 10/19/17 16:21 General appearance: Present: A&O X 3 - Head Head exam: Present: atraumatic, normocephalic - Eye Eye exam: Present: PERRL, conjuntiva pink, sclera anicteric Pupils: Present: PERRL - Neck Neck exam general surgery: Present: supple, trachea midline. Absent: lymphadenopathy - Respiratory Respiratory exam: Present: CTAB. Absent: accessory muscle use, rales, rhonchi, wheezes - Cardiovascular Cardiovascular exam: Present: RRR, +S1, +S2. Absent: diastolic murmur, gallop, rubs, systolic murmur - GI/Abdominal GI/Abdominal exam: Present: normal bowel sounds, soft, no peritoneal signs. Absent: distended, tenderness - Extremities Exam Extremities exam: Present: warm, radial pulses palpable and symmetrical. Absent : calf tenderness, cyanotic, pedal edema - Neurological Exam Neurological exam: Present: CN II-XII intact, oriented X3, no focal deficits. Absent: pronater drift, facial droop, speech deficit - Skin Skin exam: Present: dry, intact Internal Medicine: Result - Labs CBC & Chem 7: 10/18/17 06:13 10/18/17 06:13 Labs: Liver Function 10/19/17 Range/Units 03:11 Total Bilirubin 0.4 (0.3-1.0) mg/dL Direct Bilirubin 0.2 (0.0-0.2) mg/dL AST 55 H (13-39) Units/L ALT 40 (7-52) Units/L Alkaline Phosphatase 128 H (34-104) Units/L Albumin 3.4 L (3.5-5.7) g/dL - ABG Interpretation ABG results: PT/INR, D-dimer PT 10.6 Seconds (9.4-12.1) 10/17/17 08:55 Consult Discharge Plan - Plan Referrals: NONE,PCP [Primary Care Provider] -
[2017-10-19] MEDS ORDERED: Thiamine (B-1) 100 MG, Folic Acid 1 MG, MVI, adult with vitamin K 10 ML in 0.9 % Sodi... IVPB SCH (18:00)
[2017-10-20] MEDS: *HR* Morphine 2 MG/ML SYRINGE IVP PRN (02:02)
[2017-10-20] MEDS ORDERED: *HR* LORazepam 1 MG TABLET PO ONE (03:30)
[2017-10-20] MEDS ORDERED: *HR* Enoxaparin 40 MG/0.4 ML SYRINGE SQ SCH (06:00)
[2017-10-20 08:16] VITALS: BP 114/74
[2017-10-20] MEDS: Nicotine 14 MG PATCH.TD24 TD SCH (09:44)
[2017-10-20] MEDS ORDERED: Ibuprofen 400 MG TABLET PO ONE (10:33)
--- NOTE | 2017-10-20 10:34 | Event Note ---
Date of Encounter: 10/20/17 Time of Encounter: 10:31 - Patient Status Disposition: Home, Self-Care Condition: Good Functional capacity at discharge: independent ambulation Overall status at discharge: patient is progressing back to baseline - Discharge Instructions Follow Up With: NONE,PCP [Primary Care Provider] - Flor Garcia LENS MOLD SETTER [Advanced Practice Nurse] - 11/03/17 1:15 pm (surgery follow-up) Additional Instructions: #1 may shower 10/20/17, no tub bath for 2 weeks #2 wash incisions with soap and water and pat dry daily #3 no lifting, pushing, pulling more than 15 pounds for the next 2 weeks #4 no driving until off narcotics for 24 hours and able to safely react in the car #5 may climb stairs - Diet and Activity Activity: other (See additional instructions above) Diet: advance to your usual diet
--- NOTE | 2017-10-20 12:56 | Discharge Summary ---
Date of Encounter: 10/20/17 Time of Encounter: 12:57 - Discharge Diagnosis (1) Cholelithiases Priority: Primary Status: Acute Comments: presented with RUQ pain. Lipase normal, LFTs elevated and trending down. ABD CT concerning for cholecystitis, U/S demonstrated thickening of gallbladder wall. HIDA scan also consistent with cholecystitis. S/p laparoscopic cholecystectomy. Tolerating regular diet and pain controlled at time of discharge. Will need to follow-up with General Surgery in 2 weeks. Qualifiers: Cholelithiasis location: gallbladder Cholecystitis presence: with cholecystitis Biliary obstruction: without biliary obstruction Qualified Code(s): K80.00 - Calculus of gallbladder with acute cholecystitis without obstruction (2) Alcohol abuse Priority: Secondary Status: Chronic Comments: daily drinker. Last drink 2 days prior to presentation. No evidence of withdrawal during this hospitalization. Cessation advised - Discharge Medications Prescriptions: Ibuprofen 400 mg PO Q8H PRN #21 tablet PRN Reason: Pain Home Medications: Buprenorphine HCl/Naloxone HCl [Buprenorphin-Naloxon 8-2 mg Sl] 1 each SL BID [History] Ibuprofen 400 mg PO Q8H PRN #21 tablet 10/20/17 [Rx] Allergies/Adverse Reactions: 3 Allergy/AdvReac Type Severity Reaction Status Date / Time No Known Allergies Allergy Verified 06/21/17 12:18 Procedures/tests Complete & Pending: Procedures Performed prior 72 hours Category Date Time Status NM hepatobiliary [NM] Routine Exams 10/18/17 08:00 Completed Date of admission: 10/17/17 12:20 Primary care physician: PCP NONE Discharging clinician: Alexandria Hardy Anticipated date of discharge: 10/20/17 - Patient Status Disposition: Home, Self-Care Condition: Good Functional capacity at discharge: independent ambulation Overall status at discharge: patient is progressing back to baseline - Discharge Instructions Instructions: Cholecystitis (DC), Laparoscopic Cholecystectomy (DC) Follow Up With: Flor Garcia CNP [Advanced Practice Nurse] - 11/03/17 1:15 pm (surgery follow-up) NONE,PCP [Primary Care Provider] - (Call your primary care physician within 24 hours over the next business day for follow-up.) Additional Instructions: #1 may shower 10/20/17, no tub bath for 2 weeks #2 wash incisions with soap and water and pat dry daily #3 no lifting, pushing, pulling more than 15 pounds for the next 2 weeks #4 no driving until off narcotics for 24 hours and able to safely react in the car #5 may climb stairs - Diet and Activity Activity: increase activity as tolerated Diet: advance to your usual diet Interval History: Seen and examined at bedside. Patient says she feels well without to discharge home today. Tolerating regular diet, having mild abdominal pain which is relieved with ibuprofen. Advised to follow-up with Gen. surgery within 2 weeks. Hospital course: See assessment and plan for hospital course - Time Spent with Patient Total time spent providing and/or coordinating discharge services: - Constitutional Vitals: Temp Pulse Resp BP Pulse Ox 98.3 F 61 16 114/74 98 10/20/17 08:15 10/20/17 08:15 10/20/17 08:15 10/20/17 08:15 10/20/17 08:15 General appearance: Present: A&O X 3, no acute distress - Head Head exam: Present: atraumatic, normocephalic - Eye Eye exam: Present: PERRL, conjuntiva pink, sclera anicteric Pupils: Present: PERRL - Neck Neck exam general surgery: Present: supple, trachea midline. Absent: lymphadenopathy - Respiratory Respiratory exam: Present: CTAB. Absent: accessory muscle use, rales, rhonchi, wheezes - Cardiovascular Cardiovascular exam: Present: RRR, +S1, +S2. Absent: diastolic murmur, gallop, rubs, systolic murmur - GI/Abdominal GI/Abdominal exam: Present: normal bowel sounds, soft, no peritoneal signs. Absent: distended, tenderness Additional comments: 3 s/p lap aarti sites - Extremities Exam Extremities exam: Present: warm, radial pulses palpable and symmetrical. Absent : calf tenderness, cyanotic, pedal edema - Neurological Exam Neurological exam: Present: CN II-XII intact, oriented X3, no focal deficits. Absent: pronater drift, facial droop, speech deficit - Skin Skin exam: Present: dry, intact
== END 2017-10-20 14:00 | disposition home or self-care (01) | DRG 263 ==
LOC: EMEROO 08:26 → 3BNU 08:26
PROVIDERS: ADMIT Hospitalist; ATTEND Registered Nurse